=== PATIENT | male | born 1950 | race Caucasian/White ===

== ENCOUNTER 2019-03-29 16:18 | Observation (INO) ==
[2019-03-29] MEDS ORDERED: ACETAMINOPHEN 325 MG TABLET PO PRN (16:21)
[2019-03-29] MEDS ORDERED: MAGNESIUM SULF RIDER 4 GM in PREMIX 1 EACH IV PRN (16:21)
[2019-03-29] MEDS ORDERED: ONDANSETRON 4 MG/2 ML VIAL IV PRN (16:21)
[2019-03-29] MEDS ORDERED: MAGNESIUM SULF RIDER 2 GM in PREMIX 1 EACH IV PRN (16:21)
[2019-03-29] MEDS ORDERED: DOCUSATE SODIUM 100 MG CAPSULE PO PRN (16:21)
[2019-03-29] MEDS ORDERED: POTASSIUM CHLORIDE 20 MEQ TABLET PO PRN (16:21)
[2019-03-29] MEDS ORDERED: ZALEPLON 5 MG CAPSULE PO PRN (16:21)
[2019-03-29 18:18] LABS: Basophils # 0.1 10*3/uL (0.0-0.2); Basophils % 0.8 % (0.0-0.8); Eosinophils # 0.4 10*3/uL (0.0-0.87); Eosinophils % 5.5 % (0.00-10.9); Hematocrit 40.4 VOL% (42.0-52.0); Hemoglobin 13.4 GM/DL (14.0-18.0); Immature Granulocytes % 0.8 %; Immature Granulocytes Absolute 0.05 #; Lymphocytes # 0.8 10*3/uL (1.4-4.0); Lymphocytes % 13.1 % (21.2-54.2); Mean Corpuscular HGB Conc 33.2 GM/DL (32-36); Mean Platelet Volume 8.8 FL (9.6-12.0); Monocytes % 10.2 % (1.7-12.7); Neutrophils % 69.6 % (38.7-73.9); Platelet Count 106 T/CUMM (130-400); Red Blood Count 3.81 MC/CUMM (3.8-5.5); Red Cell Distribution Width 16.4 % (9.3-17.3); White Blood Count 6.4 T/CUMM (4-12)
[2019-03-29 18:33] LABS: Albumin 3.5 G/DL (3.4-5.0); Calcium 8.7 MG/DL (8.5-10.1); Osmolality,Calculated 288.3 MOS/KG (273-304)
[2019-03-29] MEDS: PANTOPRAZOLE 40 MG TABLET PO SCH (18:52)
[2019-03-29] MEDS: RIVAROXABAN 15 MG TABLET PO SCH (20:43)
[2019-03-30 06:27] LABS: Basophils # 0.1 10*3/uL (0.0-0.2); Basophils % 1.3 % (0.0-0.8); Eosinophils # 0.3 10*3/uL (0.0-0.87); Eosinophils % 6.8 % (0.00-10.9); Hematocrit 38.1 VOL% (42.0-52.0); Immature Granulocytes % 1.1 %; Immature Granulocytes Absolute 0.05 #; Lymphocytes % 22.7 % (21.2-54.2); Mean Corpuscular HGB Conc 34.1 GM/DL (32-36); Mean Corpuscular Volume 104.7 FL (87-102); Mean Platelet Volume 10.5 FL (9.6-12.0); Monocytes % 14.8 % (1.7-12.7); Neutrophils % 53.3 % (38.7-73.9); Red Blood Count 3.64 MC/CUMM (3.8-5.5); Red Cell Distribution Width 16.5 % (9.3-17.3); White Blood Count 4.6 T/CUMM (4-12)
[2019-03-30 06:32] LABS: Platelet Count 85 T/CUMM (130-400)
[2019-03-30 06:54] LABS: Osmolality,Calculated 293.7 MOS/KG (273-304); Risk Ratio 3.67
[2019-03-30 07:03] LABS: Hypochromasia 1+; Platelet Estimate Decreased
[2019-03-30] MEDS ORDERED: NITROGLYCERIN SL 0.4 MG TABLET SL PRN (07:45)
[2019-03-30] MEDS ORDERED: METHOCARBAMOL 500 MG TABLET PO PRN (07:45)
[2019-03-30] MEDS ORDERED: PROMETHAZINE 25 MG TABLET PO PRN (07:48)
[2019-03-30] MEDS: FOLIC ACID 1 MG TABLET PO SCH (08:59)
[2019-03-30] MEDS: PANTOPRAZOLE 40 MG TABLET PO SCH (08:59)
[2019-03-30] MEDS: RIVAROXABAN 15 MG TABLET PO SCH ×2 (08:59→17:00)
[2019-03-30] MEDS: CETIRIZINE 10 MG TABLET PO SCH (10:10)
[2019-03-30] MEDS: TRIAMCINOLONE 0.1% CREAM 15 GM TUBE TOP SCH (10:10)
[2019-03-30] MEDS: ASPIRIN EC 81 MG TABLET PO SCH (10:10)
[2019-03-30] MEDS: LOSARTAN 50 MG TABLET PO SCH (10:11)
[2019-03-30] MEDS: INSULIN REGULAR 100 UNIT/ML SUBCUT SCH ×3 (13:05→21:15)
[2019-03-30] MEDS ORDERED: ATORVASTATIN 40 MG TABLET PO SCH (21:00)
[2019-03-31 04:56] LABS: Basophils # 0.1 10*3/uL (0.0-0.2); Basophils % 1.2 % (0.0-0.8); Eosinophils # 0.4 10*3/uL (0.0-0.87); Eosinophils % 8.5 % (0.00-10.9); Hematocrit 37.1 VOL% (42.0-52.0); Hemoglobin 12.2 GM/DL (14.0-18.0); Immature Granulocytes % 1.9 %; Immature Granulocytes Absolute 0.08 #; Lymphocytes % 23.2 % (21.2-54.2); Mean Corpuscular HGB Conc 32.9 GM/DL (32-36); Mean Corpuscular Volume 107.5 FL (87-102); Mean Platelet Volume 9.5 FL (9.6-12.0); Neutrophils % 43.2 % (38.7-73.9); Red Blood Count 3.45 MC/CUMM (3.8-5.5); Red Cell Distribution Width 16.7 % (9.3-17.3); White Blood Count 4.1 T/CUMM (4-12)
[2019-03-31 04:57] LABS: Platelet Count 78 T/CUMM (130-400)
[2019-03-31 05:32] LABS: Calcium 8.1 MG/DL (8.5-10.1); Osmolality,Calculated 293.7 MOS/KG (273-304)
[2019-03-31 05:41] LABS: Eosinophils 6 % (0-10); Lymphocytes 22 % (20-55); Platelet Estimate Decreased; Segmented Neutrophils 61 % (50-85); Total Cells Counted 100
[2019-03-31] MEDS: INSULIN REGULAR 100 UNIT/ML SUBCUT SCH (08:00)
[2019-03-31 08:18] VITALS: BP 108/57
[2019-03-31] MEDS ORDERED: METHOTREXATE 2.5 MG TABLET PO SCH (09:00)
[2019-03-31] MEDS: CETIRIZINE 10 MG TABLET PO SCH (09:21)
[2019-03-31] MEDS: RIVAROXABAN 15 MG TABLET PO SCH (09:21)
[2019-03-31] MEDS: TRIAMCINOLONE 0.1% CREAM 15 GM TUBE TOP SCH (09:21)
[2019-03-31] MEDS: ASPIRIN EC 81 MG TABLET PO SCH (10:26)
[2019-03-31] MEDS: FOLIC ACID 1 MG TABLET PO SCH (10:26)
[2019-03-31] MEDS: LOSARTAN 50 MG TABLET PO SCH (10:26)
[2019-03-31] MEDS: PANTOPRAZOLE 40 MG TABLET PO SCH (10:27)
[2019-04-04 15:56] LABS: F5DNA Reviewed By SEE COMMENTS; Factor V Leiden (R506Q) Mutati Negative (Negative); PTNT Reviewed By SEE COMMENTS
== END 2019-03-31 10:45 | disposition home or self-care (01) ==
LOC: N.TELEN
PROVIDERS: ADMIT Internal Medicine Interventional Cardiology; ATTEND Internal Medicine Interventional Cardiology

== ENCOUNTER 2019-06-27 04:05 | Inpatient (IN) ==
[2019-06-27 05:23] LABS: Apearance,Urine CLEAR (Clear); Bacteria,Urine Occasional /HPF (Few); Bilirubin,Urine Negative (Negative); Blood, Urine Large mg/dL (Negative); Glucose,Urine (UA) Negative (Negative); Hyaline Casts,Urine 3 /LPF (0-3); Ketones,Urine Negative (Negative); Mucus,Urine Occasional /LPF (Occasional); Nitrite,Urine Negative (Negative); Protein,Urine Negative; RBC,Urine 69 /HPF (0-4); Urine Color Yellow (Yellow); Urine Specific Gravity 1.013 (1.001-1.035); Urine Urobilinogen < 2.0 EU/DL (0.2-1.0); WBC,Urine <1 /HPF (0-6)
[2019-06-27 05:25] LABS: Basophils % 0.2 % (0.0-0.8); Eosinophils # 0.1 10*3/uL (0.0-0.87); Eosinophils % 1.6 % (0.00-10.9); Hematocrit 32.1 VOL% (42.0-52.0); Hemoglobin 10.5 GM/DL (14.0-18.0); Immature Granulocytes % 2.2 %; Immature Granulocytes Absolute 0.19 #; Lymphocytes # 1.2 10*3/uL (1.4-4.0); Lymphocytes % 13.9 % (21.2-54.2); Mean Corpuscular HGB Conc 32.7 GM/DL (32-36); Mean Corpuscular Volume 104.6 FL (87-102); Mean Platelet Volume 10.8 FL (9.6-12.0); Monocytes % 12.4 % (1.7-12.7); Neutrophils % 69.7 % (38.7-73.9); Platelet Count 106 T/CUMM (130-400); Red Blood Count 3.07 MC/CUMM (3.8-5.5); Red Cell Distribution Width 17.2 % (9.3-17.3); White Blood Count 8.6 T/CUMM (4-12)
[2019-06-27 05:40] LABS: Albumin 2.3 G/DL (3.4-5.0); Bilirubin,Total 0.7 MG/DL (0.2-1.0); Calcium 8.7 MG/DL (8.5-10.1); Osmolality,Calculated 294.7 MOS/KG (273-304); Total Protein 5.4 G/DL (6.4-8.3)
[2019-06-27 05:45] LABS: Band Neutrophils 2 % (0-10); Eosinophils 1 % (0-10); Lymphocytes 9 % (20-55); Platelet Estimate Decreased; Segmented Neutrophils 78 % (50-85); Total Cells Counted 100
[2019-06-27 05:46] LABS: Hypochromasia 1+; Microcytosis 1+; Ovalocytes Slight
[2019-06-27 06:14] LABS: INR 4.2
[2019-06-27 06:15] LABS: PT Patient Result 44.9 SECS (9.6-12.2)
[2019-06-27] MEDS ORDERED: ONDANSETRON 4 MG/2 ML VIAL IV PRN (08:32)
[2019-06-27] MEDS ORDERED: ACETAMINOPHEN 325 MG TABLET PO PRN (08:32)
[2019-06-27] MEDS ORDERED: METHOCARBAMOL 500 MG TABLET PO PRN (09:08)
[2019-06-27] MEDS ORDERED: cefTRIAXone 2,000 MG in SYRINGE 1 EACH IV SCH (16:00)
[2019-06-27] MEDS ORDERED: ALBUTEROL/IPRATROPIUM 3 ML NEB RESP TX PRN (17:20)
[2019-06-27] MEDS: AMPICILLIN INJ 2,000 MG in SODIUM CHLORIDE 0.9% 100 ML IV SCH (17:59)
[2019-06-27] MEDS: VANCOMYCIN INJ 1,250 MG in SODIUM CHLORIDE 0.9% 250 ML IV SCH (18:37)
[2019-06-27] MEDS: ALBUTEROL/IPRATROPIUM 3 ML NEB RESP TX SCH (20:00)
[2019-06-27] MEDS: ATORVASTATIN 40 MG TABLET PO SCH (20:33)
[2019-06-27] MEDS: ACYCLOVIR INJ 750 MG in SODIUM CHLORIDE 0.9% 250 ML IV SCH (22:29)
[2019-06-28] MEDS: ALBUTEROL/IPRATROPIUM 3 ML NEB RESP TX SCH ×4 (00:36→19:20)
[2019-06-28] MEDS: AMPICILLIN INJ 2,000 MG in SODIUM CHLORIDE 0.9% 100 ML IV SCH ×7 (00:42→23:46)
[2019-06-28 02:26] LABS: Allen Test Positive; Pt O2 Delivery Device Venturi Mask
[2019-06-28 02:27] LABS: ABG Base Excess -3.1 MMOL/L (-2.5-2.5); ABG HCO3 21.7 MMOL/L (20-26); ABG Oxygen Saturation 89.2 % (95-100); ABG PCO2 27.1 MM HG (35-48); ABG PH 7.464 (7.35-7.45); ABG PO2 54.5 MM HG (80-95); ABG TCO2 17.4 MMOL/L (23-27)
[2019-06-28 05:41] LABS: INR 3.3
[2019-06-28] MEDS: ACYCLOVIR INJ 750 MG in SODIUM CHLORIDE 0.9% 250 ML IV SCH ×3 (05:57→22:28)
[2019-06-28 05:58] LABS: PT Patient Result 35.3 SECS (9.6-12.2)
[2019-06-28 05:59] LABS: Hematocrit 32.2 VOL% (42.0-52.0); Hemoglobin 10.7 GM/DL (14.0-18.0); Mean Corpuscular Volume 102.5 FL (87-102); Red Blood Count 3.14 MC/CUMM (3.8-5.5); White Blood Count 7.6 T/CUMM (4-12)
[2019-06-28 06:00] LABS: Basophils % 0.4 % (0.0-0.8); Eosinophils # 0.1 10*3/uL (0.0-0.87); Eosinophils % 0.7 % (0.00-10.9); Immature Granulocytes % 1.5 %; Immature Granulocytes Absolute 0.11 #; Lymphocytes # 0.8 10*3/uL (1.4-4.0); Mean Corpuscular HGB Conc 33.2 GM/DL (32-36); Mean Platelet Volume 11.6 FL (9.6-12.0); Monocytes % 9.4 % (1.7-12.7); Platelet Count 111 T/CUMM (130-400); Red Cell Distribution Width 17.5 % (9.3-17.3)
[2019-06-28 06:01] LABS: Calcium 8.4 MG/DL (8.5-10.1); Osmolality,Calculated 285.3 MOS/KG (273-304)
[2019-06-28 06:26] LABS: Platelet Estimate Decreased; Polychromasia Few
[2019-06-28] MEDS: cefTRIAXone 2,000 MG in SYRINGE 1 EACH IV SCH ×2 (06:51→17:34)
[2019-06-28] MEDS ORDERED: MAGNESIUM SULF RIDER 4 GM in PREMIX 1 EACH IV PRN (07:59)
[2019-06-28] MEDS ORDERED: MAGNESIUM SULF RIDER 2 GM in PREMIX 1 EACH IV PRN (07:59)
[2019-06-28] MEDS ORDERED: CYANOCOBALAMIN 500 MCG TABLET PO SCH (09:00)
[2019-06-28] MEDS ORDERED: ENOXAPARIN 80 MG/0.8 ML SYRINGE SUBCUT SCH (09:30)
[2019-06-28 11:17] LABS: Free T4 (Free Thyroxine) 0.88 NG/DL (0.76-1.46); Thyroid Stimulating Hormone 0.538 uIU/ml (0.358-3.74)
[2019-06-28] MEDS: ASPIRIN EC 81 MG TABLET PO SCH (12:41)
[2019-06-28] MEDS: LOSARTAN 50 MG TABLET PO SCH (12:41)
[2019-06-28] MEDS: CYANOCOBALAMIN 1000 MCG/1 ML VIAL SUBCUT SCH (12:41)
[2019-06-28] MEDS: FOLIC ACID 1 MG TABLET PO SCH (12:41)
[2019-06-28] MEDS: predniSONE 10 MG TABLET PO SCH (12:41)
[2019-06-28] MEDS ORDERED: FUROSEMIDE 40 MG/4 ML VIAL IV SCH (16:00)
[2019-06-28] MEDS: VANCOMYCIN INJ 1,250 MG in SODIUM CHLORIDE 0.9% 250 ML IV SCH (18:56)
[2019-06-28] MEDS: ATORVASTATIN 40 MG TABLET PO SCH (22:41)
[2019-06-29] MEDS: ALBUTEROL/IPRATROPIUM 3 ML NEB RESP TX SCH ×4 (00:52→19:13)
[2019-06-29] MEDS: AMPICILLIN INJ 2,000 MG in SODIUM CHLORIDE 0.9% 100 ML IV SCH ×6 (02:29→22:18)
[2019-06-29 04:33] LABS: INR 2.4
[2019-06-29 04:37] LABS: Basophils % 0.2 % (0.0-0.8); Eosinophils # 0.1 10*3/uL (0.0-0.87); Eosinophils % 0.9 % (0.00-10.9); Hematocrit 25.9 VOL% (42.0-52.0); Hemoglobin 8.5 GM/DL (14.0-18.0); Immature Granulocytes % 1.1 %; Immature Granulocytes Absolute 0.06 #; Lymphocytes # 0.8 10*3/uL (1.4-4.0); Lymphocytes % 14.7 % (21.2-54.2); Mean Corpuscular HGB Conc 32.8 GM/DL (32-36); Mean Corpuscular Volume 102.8 FL (87-102); Mean Platelet Volume 12.2 FL (9.6-12.0); Monocytes % 12.5 % (1.7-12.7); Neutrophils % 70.6 % (38.7-73.9); Red Blood Count 2.52 MC/CUMM (3.8-5.5); Red Cell Distribution Width 17.1 % (9.3-17.3); White Blood Count 5.4 T/CUMM (4-12)
[2019-06-29 04:41] LABS: Platelet Count 100 T/CUMM (130-400)
[2019-06-29 04:46] LABS: PT Patient Result 25.6 SECS (9.6-12.2)
[2019-06-29 04:50] LABS: Calcium 8.2 MG/DL (8.5-10.1); Osmolality,Calculated 289.4 MOS/KG (273-304)
[2019-06-29 05:02] LABS: Hypochromasia Slight; Ovalocytes Slight; Platelet Estimate Decreased
[2019-06-29 05:03] LABS: Microcytosis Slight
[2019-06-29] MEDS: cefTRIAXone 2,000 MG in SYRINGE 1 EACH IV SCH ×2 (05:40→16:40)
[2019-06-29] MEDS: ACYCLOVIR INJ 750 MG in SODIUM CHLORIDE 0.9% 250 ML IV SCH ×3 (06:42→21:05)
[2019-06-29] MEDS: VANCOMYCIN INJ 1,250 MG in SODIUM CHLORIDE 0.9% 250 ML IV SCH (08:00)
[2019-06-29 08:23] LABS: % Iron Saturation 26.7 % (18-50); Ferritin 2136.5 ng/ml (26-388)
[2019-06-29] MEDS ORDERED: FUROSEMIDE 40 MG/4 ML VIAL IV SCH (09:00)
[2019-06-29] MEDS: ASPIRIN EC 81 MG TABLET PO SCH (09:44)
[2019-06-29] MEDS: predniSONE 10 MG TABLET PO SCH (09:44)
[2019-06-29] MEDS: FOLIC ACID 1 MG TABLET PO SCH (09:44)
[2019-06-29] MEDS: LOSARTAN 50 MG TABLET PO SCH (09:44)
[2019-06-29] MEDS: POTASSIUM CHLORIDE 20 MEQ TABLET PO PRN (09:44)
[2019-06-29] MEDS: CYANOCOBALAMIN 1000 MCG/1 ML VIAL SUBCUT SCH (09:45)
[2019-06-29 10:16] LABS: Basophils % 0.3 % (0.0-0.8); Eosinophils # 0.3 10*3/uL (0.0-0.87); Eosinophils % 4.5 % (0.00-10.9); Hematocrit 28.9 VOL% (42.0-52.0); Hemoglobin 9.4 GM/DL (14.0-18.0); Immature Granulocytes Absolute 0.07 #; Lymphocytes # 1.1 10*3/uL (1.4-4.0); Lymphocytes % 15.6 % (21.2-54.2); Mean Corpuscular HGB Conc 32.5 GM/DL (32-36); Mean Corpuscular Volume 105.1 FL (87-102); Mean Platelet Volume 12.1 FL (9.6-12.0); Monocytes % 12.7 % (1.7-12.7); Neutrophils % 65.9 % (38.7-73.9); Platelet Count 120 T/CUMM (130-400); Red Blood Count 2.75 MC/CUMM (3.8-5.5); Red Cell Distribution Width 17.3 % (9.3-17.3); White Blood Count 7.1 T/CUMM (4-12)
[2019-06-29 10:34] LABS: Anisocytosis 1+; Macrocytosis 1+; Platelet Estimate Adequate; Poikilocytosis 1+
[2019-06-29 11:21] LABS: Sedimentation Rate-Westergren 72 MM/HR (0-20)
[2019-06-29] MEDS: SULFAMETHOX/TRIMETHOPRIM 800-160 MG TABLET PO SCH ×2 (11:38→21:15)
[2019-06-29 11:58] LABS: Folate 5.3 NG/ML (5.4-24.0); Vitamin B12 470 PG/ML (211-911)
[2019-06-29] MEDS: ATORVASTATIN 40 MG TABLET PO SCH (22:15)
[2019-06-30] MEDS: VANCOMYCIN INJ 1,250 MG in SODIUM CHLORIDE 0.9% 250 ML IV SCH ×2 (00:18→17:47)
[2019-06-30] MEDS: ALBUTEROL/IPRATROPIUM 3 ML NEB RESP TX SCH ×4 (00:52→19:21)
[2019-06-30] MEDS: AMPICILLIN INJ 2,000 MG in SODIUM CHLORIDE 0.9% 100 ML IV SCH ×6 (03:25→21:00)
[2019-06-30] MEDS: ACYCLOVIR INJ 750 MG in SODIUM CHLORIDE 0.9% 250 ML IV SCH ×3 (04:15→21:00)
[2019-06-30 04:29] LABS: Basophils % 0.2 % (0.0-0.8); Eosinophils # 0.2 10*3/uL (0.0-0.87); Eosinophils % 3.1 % (0.00-10.9); Hematocrit 25.4 VOL% (42.0-52.0); Hemoglobin 8.3 GM/DL (14.0-18.0); Immature Granulocytes % 1.1 %; Immature Granulocytes Absolute 0.06 #; Lymphocytes % 18.4 % (21.2-54.2); Mean Corpuscular HGB Conc 32.7 GM/DL (32-36); Mean Corpuscular Volume 103.3 FL (87-102); Mean Platelet Volume 11.7 FL (9.6-12.0); Monocytes % 15.2 % (1.7-12.7); Platelet Count 100 T/CUMM (130-400); Red Blood Count 2.46 MC/CUMM (3.8-5.5); White Blood Count 5.5 T/CUMM (4-12)
[2019-06-30 04:35] LABS: INR 2.4
[2019-06-30 04:37] LABS: PT Patient Result 25.5 SECS (9.6-12.2)
[2019-06-30 05:04] LABS: Calcium 8.1 MG/DL (8.5-10.1); Osmolality,Calculated 296.4 MOS/KG (273-304)
[2019-06-30] MEDS: cefTRIAXone 2,000 MG in SYRINGE 1 EACH IV SCH ×2 (05:39→16:08)
[2019-06-30] MEDS: POTASSIUM CHLORIDE 20 MEQ TABLET PO PRN (05:49)
[2019-06-30 07:38] LABS: Hemoglobin A1 (Alkaline) 97.5 % (96.5-98.5); Hemoglobin A2 (Alkaline) 2.5 % (1.5-3.5)
[2019-06-30] MEDS: CYANOCOBALAMIN 1000 MCG/1 ML VIAL SUBCUT SCH (08:59)
[2019-06-30] MEDS: FUROSEMIDE 40 MG TABLET PO SCH (08:59)
[2019-06-30] MEDS: FERROUS SULFATE 325 MG TABLET PO SCH ×2 (08:59→21:01)
[2019-06-30] MEDS: predniSONE 10 MG TABLET PO SCH (08:59)
[2019-06-30] MEDS: ASPIRIN EC 81 MG TABLET PO SCH (09:00)
[2019-06-30] MEDS: SULFAMETHOX/TRIMETHOPRIM 800-160 MG TABLET PO SCH ×3 (09:00→21:01)
[2019-06-30] MEDS: FOLIC ACID 1 MG TABLET PO SCH (09:00)
[2019-06-30] MEDS: POTASSIUM CHLORIDE 20 MEQ TABLET PO SCH ×2 (09:14→21:00)
[2019-06-30] MEDS: methylPREDNISolone SOD SUC 40 MG/1 ML VIAL IV SCH ×2 (10:57→21:00)
[2019-06-30 12:44] LABS: HIV Antigen/Antibody Result Nonreactive (Nonreactive)
[2019-07-01] MEDS: ALBUTEROL/IPRATROPIUM 3 ML NEB RESP TX SCH ×4 (00:54→20:10)
[2019-07-01] MEDS: AMPICILLIN INJ 2,000 MG in SODIUM CHLORIDE 0.9% 100 ML IV SCH ×6 (02:16→22:48)
[2019-07-01] MEDS: cefTRIAXone 2,000 MG in SYRINGE 1 EACH IV SCH ×2 (05:14→17:53)
[2019-07-01] MEDS: ACYCLOVIR INJ 750 MG in SODIUM CHLORIDE 0.9% 250 ML IV SCH ×3 (05:15→20:32)
[2019-07-01 05:49] LABS: Basophils % 0.2 % (0.0-0.8); Eosinophils % 0.4 % (0.00-10.9); Hematocrit 21.3 VOL% (42.0-52.0); Hemoglobin 6.5 GM/DL (14.0-18.0); Immature Granulocytes % 1.5 %; Immature Granulocytes Absolute 0.08 #; Lymphocytes % 17.9 % (21.2-54.2); Mean Corpuscular HGB Conc 30.5 GM/DL (32-36); Mean Corpuscular Volume 109.2 FL (87-102); Mean Platelet Volume 12.5 FL (9.6-12.0); Monocytes % 9.8 % (1.7-12.7); Neutrophils % 70.2 % (38.7-73.9); Platelet Count 102 T/CUMM (130-400); Red Blood Count 1.95 MC/CUMM (3.8-5.5); Red Cell Distribution Width 17.4 % (9.3-17.3); White Blood Count 5.3 T/CUMM (4-12)
[2019-07-01 06:05] LABS: Calcium 8.4 MG/DL (8.5-10.1)
[2019-07-01 06:09] LABS: INR 2.3
[2019-07-01] MEDS ORDERED: SODIUM CHLORIDE 0.9% 1,000 ML IV PRN (06:12)
[2019-07-01 06:14] LABS: PT Patient Result 24.8 SECS (9.6-12.2)
[2019-07-01 07:36] LABS: Anisocytosis 1+; Band Neutrophils 1 % (0-10); Hypochromasia 1+; Lymphocytes 8 % (20-55); Myelocytes 1 %; Ovalocytes Few; Poikilocytosis 1+; Segmented Neutrophils 81 % (50-85); Total Cells Counted 100
[2019-07-01 07:37] LABS: Burr Cells Slight; Platelet Estimate Adequate; Polychromasia Slight
[2019-07-01] MEDS: SULFAMETHOX/TRIMETHOPRIM 800-160 MG TABLET PO SCH ×3 (08:52→20:39)
[2019-07-01] MEDS: ASPIRIN EC 81 MG TABLET PO SCH (08:53)
[2019-07-01] MEDS: FUROSEMIDE 40 MG TABLET PO SCH (08:53)
[2019-07-01] MEDS: FERROUS SULFATE 325 MG TABLET PO SCH ×2 (08:53→20:39)
[2019-07-01] MEDS: FOLIC ACID 1 MG TABLET PO SCH ×2 (08:53→20:40)
[2019-07-01] MEDS: POTASSIUM CHLORIDE 20 MEQ TABLET PO SCH ×2 (08:57→20:39)
[2019-07-01] MEDS: methylPREDNISolone SOD SUC 40 MG/1 ML VIAL IV SCH ×2 (09:05→22:45)
[2019-07-01] MEDS: CYANOCOBALAMIN 1000 MCG/1 ML VIAL SUBCUT SCH (09:09)
[2019-07-01] MEDS: VANCOMYCIN INJ 1,250 MG in SODIUM CHLORIDE 0.9% 250 ML IV SCH (12:13)
[2019-07-02] MEDS: AMPICILLIN INJ 2,000 MG in SODIUM CHLORIDE 0.9% 100 ML IV SCH ×6 (01:40→21:35)
[2019-07-02] MEDS: ALBUTEROL/IPRATROPIUM 3 ML NEB RESP TX SCH ×4 (01:56→19:46)
[2019-07-02] MEDS ORDERED: CALCIUM CARBONATE CHEW 500 MG TABLET PO ONE (02:13)
[2019-07-02] MEDS: cefTRIAXone 2,000 MG in SYRINGE 1 EACH IV SCH ×2 (04:40→17:19)
[2019-07-02 04:43] LABS: Basophils % 0.2 % (0.0-0.8); Eosinophils # 0.1 10*3/uL (0.0-0.87); Eosinophils % 0.8 % (0.00-10.9); Hematocrit 26.7 VOL% (42.0-52.0); Hemoglobin 8.6 GM/DL (14.0-18.0); Immature Granulocytes % 2.9 %; Immature Granulocytes Absolute 0.17 #; Lymphocytes # 0.9 10*3/uL (1.4-4.0); Lymphocytes % 14.6 % (21.2-54.2); Mean Corpuscular HGB Conc 32.2 GM/DL (32-36); Mean Corpuscular Volume 103.1 FL (87-102); Mean Platelet Volume 13.5 FL (9.6-12.0); Monocytes % 10.6 % (1.7-12.7); NRBC # 0.03 10*3/uL; Neutrophils % 70.9 % (38.7-73.9); Platelet Count 75 T/CUMM (130-400); Red Blood Count 2.59 MC/CUMM (3.8-5.5); Red Cell Distribution Width 17.3 % (9.3-17.3)
[2019-07-02] MEDS: ACYCLOVIR INJ 750 MG in SODIUM CHLORIDE 0.9% 250 ML IV SCH ×3 (04:49→20:12)
[2019-07-02 05:01] LABS: INR 2.1
[2019-07-02 05:07] LABS: Calcium 8.9 MG/DL (8.5-10.1)
[2019-07-02 05:39] LABS: PT Patient Result 22.9 SECS (9.6-12.2)
[2019-07-02 06:17] LABS: Band Neutrophils 1 % (0-10); Lymphocytes 10 % (20-55); Macrocytosis Slight; Metamyelocytes 1 %; Nucleated Red Blood Cells 1 (0-5); Segmented Neutrophils 83 % (50-85); Total Cells Counted 100
[2019-07-02 06:18] LABS: Ovalocytes Few; Platelet Estimate Decreased
[2019-07-02] MEDS: SULFAMETHOX/TRIMETHOPRIM 800-160 MG TABLET PO SCH ×3 (08:44→20:12)
[2019-07-02] MEDS: ASPIRIN EC 81 MG TABLET PO SCH (08:44)
[2019-07-02] MEDS: FUROSEMIDE 40 MG TABLET PO SCH (08:44)
[2019-07-02] MEDS: FOLIC ACID 1 MG TABLET PO SCH ×2 (08:44→20:12)
[2019-07-02] MEDS: FERROUS SULFATE 325 MG TABLET PO SCH ×2 (08:45→20:12)
[2019-07-02] MEDS: POTASSIUM CHLORIDE 20 MEQ TABLET PO SCH ×2 (08:45→20:11)
[2019-07-02] MEDS: CYANOCOBALAMIN 1000 MCG/1 ML VIAL SUBCUT SCH (08:45)
[2019-07-02] MEDS: methylPREDNISolone SOD SUC 40 MG/1 ML VIAL IV SCH ×2 (09:39→21:45)
[2019-07-02] MEDS: VANCOMYCIN INJ 1,250 MG in SODIUM CHLORIDE 0.9% 250 ML IV SCH ×2 (18:09)
[2019-07-03] MEDS ORDERED: VANCOMYCIN INJ 1,250 MG in SODIUM CHLORIDE 0.9% 250 ML IV SCH
[2019-07-03] MEDS: ALBUTEROL/IPRATROPIUM 3 ML NEB RESP TX SCH ×4 (00:35→19:23)
[2019-07-03] MEDS: AMPICILLIN INJ 2,000 MG in SODIUM CHLORIDE 0.9% 100 ML IV SCH ×4 (01:01→14:27)
[2019-07-03] MEDS: cefTRIAXone 2,000 MG in SYRINGE 1 EACH IV SCH (04:00)
[2019-07-03] MEDS: ACYCLOVIR INJ 750 MG in SODIUM CHLORIDE 0.9% 250 ML IV SCH ×2 (04:02→15:11)
[2019-07-03 04:51] LABS: Basophils % 0.4 % (0.0-0.8); Eosinophils # 0.1 10*3/uL (0.0-0.87); Hematocrit 27.4 VOL% (42.0-52.0); Hemoglobin 8.7 GM/DL (14.0-18.0); Immature Granulocytes % 4.4 %; Immature Granulocytes Absolute 0.34 #; Lymphocytes # 1.1 10*3/uL (1.4-4.0); Mean Corpuscular HGB Conc 31.8 GM/DL (32-36); Mean Corpuscular Volume 104.6 FL (87-102); Mean Platelet Volume 10.1 FL (9.6-12.0); Monocytes % 8.4 % (1.7-12.7); NRBC # 0.06 10*3/uL; Neutrophils % 71.8 % (38.7-73.9); Platelet Count 160 T/CUMM (130-400); Red Blood Count 2.62 MC/CUMM (3.8-5.5); Red Cell Distribution Width 17.6 % (9.3-17.3); White Blood Count 7.7 T/CUMM (4-12)
[2019-07-03 05:00] LABS: PT Patient Result 22.1 SECS (9.6-12.2)
[2019-07-03 05:01] LABS: Hypochromasia 1+; Platelet Estimate Adequate
[2019-07-03 05:02] LABS: Burr Cells Slight; Ovalocytes Slight
[2019-07-03 05:11] LABS: Calcium 8.7 MG/DL (8.5-10.1); Osmolality,Calculated 287.4 MOS/KG (273-304)
[2019-07-03] MEDS ORDERED: LACTATED RINGERS 1,000 ML IV SCH (08:00)
[2019-07-03] MEDS ORDERED: PROPOFOL 200 MG/20 ML VIAL IV ONE (09:00)
[2019-07-03] MEDS ORDERED: LIDOCAINE 2% 5 ML VIAL ONE (09:00)
[2019-07-03] MEDS: methylPREDNISolone SOD SUC 40 MG/1 ML VIAL IV SCH ×2 (09:16→21:40)
[2019-07-03] MEDS: CYANOCOBALAMIN 1000 MCG/1 ML VIAL SUBCUT SCH (10:11)
[2019-07-03] MEDS: FLUCONAZOLE INJ 100 MG in IV BAG 1 EACH IV SCH (13:55)
[2019-07-03] MEDS: POTASSIUM CHLORIDE 20 MEQ TABLET PO SCH ×2 (14:00→21:40)
[2019-07-03] MEDS: FERROUS SULFATE 325 MG TABLET PO SCH ×2 (14:01→21:40)
[2019-07-03] MEDS: ASPIRIN EC 81 MG TABLET PO SCH (14:01)
[2019-07-03] MEDS: FUROSEMIDE 40 MG TABLET PO SCH (14:01)
[2019-07-03] MEDS: FOLIC ACID 1 MG TABLET PO SCH ×2 (14:01→21:40)
[2019-07-03] MEDS: SULFAMETHOX/TRIMETHOPRIM 800-160 MG TABLET PO SCH ×3 (14:01→21:40)
[2019-07-03] MEDS: PANTOPRAZOLE 40 MG TABLET PO SCH ×2 (14:02→21:40)
[2019-07-04] MEDS: ALBUTEROL/IPRATROPIUM 3 ML NEB RESP TX SCH ×4 (00:21→19:13)
[2019-07-04 04:20] LABS: Basophils % 0.1 % (0.0-0.8); Eosinophils # 0.1 10*3/uL (0.0-0.87); Eosinophils % 0.8 % (0.00-10.9); Hematocrit 26.8 VOL% (42.0-52.0); Hemoglobin 8.5 GM/DL (14.0-18.0); Immature Granulocytes % 7.2 %; Immature Granulocytes Absolute 0.53 #; Lymphocytes # 1.2 10*3/uL (1.4-4.0); Lymphocytes % 15.7 % (21.2-54.2); Mean Corpuscular HGB Conc 31.7 GM/DL (32-36); Mean Corpuscular Volume 106.3 FL (87-102); Mean Platelet Volume 10.8 FL (9.6-12.0); Monocytes % 9.1 % (1.7-12.7); NRBC # 0.07 10*3/uL; Neutrophils % 67.1 % (38.7-73.9); Platelet Count 145 T/CUMM (130-400); Red Blood Count 2.52 MC/CUMM (3.8-5.5); Red Cell Distribution Width 18.1 % (9.3-17.3); White Blood Count 7.4 T/CUMM (4-12)
[2019-07-04 04:42] LABS: Band Neutrophils 2 % (0-10); Hypochromasia 1+; Lymphocytes 15 % (20-55); Segmented Neutrophils 72 % (50-85); Total Cells Counted 100
[2019-07-04 04:47] LABS: Calcium 8.5 MG/DL (8.5-10.1); Osmolality,Calculated 289.5 MOS/KG (273-304)
[2019-07-04 04:51] LABS: PT Patient Result 21.6 SECS (9.6-12.2)
[2019-07-04] MEDS: POTASSIUM CHLORIDE 20 MEQ TABLET PO SCH ×2 (08:07→21:06)
[2019-07-04] MEDS: CYANOCOBALAMIN 1000 MCG/1 ML VIAL SUBCUT SCH (08:44)
[2019-07-04] MEDS: FUROSEMIDE 40 MG TABLET PO SCH (08:45)
[2019-07-04] MEDS: FERROUS SULFATE 325 MG TABLET PO SCH ×2 (08:45→21:06)
[2019-07-04] MEDS: ACYCLOVIR 800 MG TABLET PO SCH ×3 (08:45→21:11)
[2019-07-04] MEDS: FOLIC ACID 1 MG TABLET PO SCH ×2 (08:45→21:06)
[2019-07-04] MEDS: ASPIRIN EC 81 MG TABLET PO SCH (08:45)
[2019-07-04] MEDS: PANTOPRAZOLE 40 MG TABLET PO SCH ×2 (08:45→21:06)
[2019-07-04] MEDS: SULFAMETHOX/TRIMETHOPRIM 800-160 MG TABLET PO SCH ×3 (08:46→21:06)
[2019-07-04] MEDS: methylPREDNISolone SOD SUC 40 MG/1 ML VIAL IV SCH ×2 (10:05→21:07)
[2019-07-04] MEDS: FLUCONAZOLE INJ 100 MG in IV BAG 1 EACH IV SCH (12:10)
[2019-07-04 14:17] LABS: Apearance,Urine CLEAR (Clear); Bilirubin,Urine Negative (Negative); Blood, Urine Small mg/dL (Negative); Glucose,Urine (UA) Negative (Negative); Hyaline Casts,Urine 9 /LPF (0-3); Ketones,Urine Negative (Negative); Mucus,Urine Occasional /LPF (Occasional); Nitrite,Urine Negative (Negative); Protein,Urine Negative; RBC,Urine 8 /HPF (0-4); Urine Color Straw (Yellow); Urine Urobilinogen < 2.0 EU/DL (0.2-1.0); WBC,Urine 1 /HPF (0-6)
[2019-07-05] MEDS: ALBUTEROL/IPRATROPIUM 3 ML NEB RESP TX SCH ×2 (02:09→07:31)
[2019-07-05 04:40] LABS: Basophils % 0.2 % (0.0-0.8); Eosinophils # 0.1 10*3/uL (0.0-0.87); Eosinophils % 0.7 % (0.00-10.9); Hematocrit 26.3 VOL% (42.0-52.0); Hemoglobin 8.2 GM/DL (14.0-18.0); Immature Granulocytes % 12.2 %; Lymphocytes # 1.5 10*3/uL (1.4-4.0); Lymphocytes % 16.5 % (21.2-54.2); Mean Corpuscular HGB Conc 31.2 GM/DL (32-36); Mean Corpuscular Volume 106.9 FL (87-102); Mean Platelet Volume 10.7 FL (9.6-12.0); Monocytes % 10.4 % (1.7-12.7); NRBC # 0.08 10*3/uL; Platelet Count 168 T/CUMM (130-400); Red Blood Count 2.46 MC/CUMM (3.8-5.5); Red Cell Distribution Width 18.9 % (9.3-17.3)
[2019-07-05 04:49] LABS: INR 1.9
[2019-07-05 05:08] LABS: Band Neutrophils 1 % (0-10); Calcium 8.3 MG/DL (8.5-10.1); Hypochromasia 1+; Lymphocytes 12 % (20-55); Nucleated Red Blood Cells 2 (0-5); Osmolality,Calculated 295.5 MOS/KG (273-304); Ovalocytes Slight; Platelet Estimate Adequate; Segmented Neutrophils 80 % (50-85); Total Cells Counted 100
[2019-07-05 05:15] LABS: Calcium 8.5 MG/DL (8.5-10.1); Osmolality,Calculated 300.3 MOS/KG (273-304)
[2019-07-05] MEDS: ACYCLOVIR 800 MG TABLET PO SCH ×2 (07:57→08:06)
[2019-07-05] MEDS: ASPIRIN EC 81 MG TABLET PO SCH ×2 (07:57→08:08)
[2019-07-05] MEDS: SULFAMETHOX/TRIMETHOPRIM 800-160 MG TABLET PO SCH ×2 (07:57→08:05)
[2019-07-05] MEDS: CYANOCOBALAMIN 1000 MCG/1 ML VIAL SUBCUT SCH ×2 (07:58→08:06)
[2019-07-05] MEDS: FERROUS SULFATE 325 MG TABLET PO SCH ×2 (07:58→08:05)
[2019-07-05] MEDS: FOLIC ACID 1 MG TABLET PO SCH ×2 (07:58→08:05)
[2019-07-05] MEDS: methylPREDNISolone SOD SUC 40 MG/1 ML VIAL IV SCH ×2 (07:58→10:12)
[2019-07-05] MEDS: PANTOPRAZOLE 40 MG TABLET PO SCH ×2 (07:58→08:06)
[2019-07-05] MEDS: FUROSEMIDE 40 MG TABLET PO SCH ×2 (07:58→08:05)
[2019-07-05] MEDS: POTASSIUM CHLORIDE 20 MEQ TABLET PO SCH (08:05)
[2019-07-05 12:16] VITALS: BP 103/65
== END 2019-07-05 12:17 | disposition home or self-care (01) | DRG 177 ==
LOC: N.ED 04:05 → N.EDINP 04:05 → N.TELES 10:15 → SUATTDRO 06-28 11:17
PROVIDERS: ADMIT Internal Medicine; ATTEND Internal Medicine

== ENCOUNTER 2019-07-10 15:49 | Inpatient (IN) ==
[2019-07-10] MEDS ORDERED: SODIUM CHLORIDE 0.9% 500 ML IV STA ×2 (16:37→18:00)
[2019-07-10 17:12] LABS: Basophils # 0.1 10*3/uL (0.0-0.2); Basophils % 0.4 % (0.0-0.8); Eosinophils % 0.1 % (0.00-10.9); Hematocrit 37.8 VOL% (42.0-52.0); Immature Granulocytes % 2.4 %; Immature Granulocytes Absolute 0.34 #; Lymphocytes # 1.3 10*3/uL (1.4-4.0); Lymphocytes % 8.9 % (21.2-54.2); Mean Corpuscular HGB Conc 31.7 GM/DL (32-36); Mean Corpuscular Volume 109.2 FL (87-102); Mean Platelet Volume 10.7 FL (9.6-12.0); Monocytes % 7.2 % (1.7-12.7); NRBC # 0.02 10*3/uL; Platelet Count 114 T/CUMM (130-400); Red Blood Count 3.46 MC/CUMM (3.8-5.5); Red Cell Distribution Width 22.3 % (9.3-17.3); White Blood Count 14.5 T/CUMM (4-12)
[2019-07-10 17:50] LABS: Alanine Aminotransferase 56 U/L (16-61); Albumin 2.9 G/DL (3.4-5.0); Alkaline Phosphatase 101 U/L (45-117); Aspartate Amino Transferase 37 U/L (0-37); Bilirubin,Total < 0.39 MG/DL (0.2-1.0); Blood Urea Nitrogen 37 MG/DL (7-18); CKMB % 9.5 %; Estimated Glom Filtration Rate 33 ML/MIN; Glucose 151 MG/DL (74-106); Osmolality,Calculated 281.1 MOS/KG (273-304); Total Protein 7.5 G/DL (6.4-8.3); Troponin I 0.018 NG/ML (0.00-0.045)
[2019-07-10] MEDS ORDERED: SODIUM POLYSTYRENE SULFATE 15 GM/60 ML BOTTLE PO STA ×2 (17:59→23:33)
[2019-07-10] MEDS ORDERED: CALCIUM CHLORIDE 1,000 MG/10 ML SYRINGE IV STA (17:59)
[2019-07-10 18:27] LABS: INR 9.8; PT Patient Result 104.8 SECS (9.6-12.2)
[2019-07-10 19:41] LABS: Apearance,Urine CLEAR (Clear); Bilirubin,Urine Negative (Negative); Blood, Urine Large mg/dL (Negative); Glucose,Urine (UA) Negative (Negative); Hyaline Casts,Urine 32 /LPF (0-3); Ketones,Urine Negative (Negative); Mucus,Urine Occasional /LPF (Occasional); Nitrite,Urine Negative (Negative); Protein,Urine Negative; RBC,Urine 81 /HPF (0-4); Urine Color Yellow (Yellow); Urine Specific Gravity 1.012 (1.001-1.035); Urine Urobilinogen < 2.0 EU/DL (0.2-1.0); WBC,Urine <1 /HPF (0-6)
[2019-07-10] MEDS ORDERED: DEXTROSE 50% 25 GM/50 ML VIAL IV PRN (21:34)
[2019-07-10] MEDS ORDERED: ACETAMINOPHEN 325 MG TABLET PO PRN (21:34)
[2019-07-10] MEDS ORDERED: ALBUTEROL 2.5 MG/3 ML NEB RESP TX PRN (21:34)
[2019-07-10] MEDS ORDERED: GLUCAGON 1 MG VIAL IM PRN (21:34)
[2019-07-10] MEDS ORDERED: METHYLPREDNISOLONE PO SCH (21:34)
[2019-07-10] MEDS ORDERED: BENZONATATE 100 MG CAPSULE PO PRN (21:34)
[2019-07-10] MEDS: PANTOPRAZOLE 40 MG TABLET PO SCH (21:59)
[2019-07-10] MEDS: FERROUS SULFATE 325 MG TABLET PO SCH (21:59)
[2019-07-10] MEDS: SULFAMETHOX/TRIMETHOPRIM 800-160 MG TABLET PO SCH (21:59)
[2019-07-10] MEDS: ATORVASTATIN 40 MG TABLET PO SCH (21:59)
[2019-07-10] MEDS: METHOCARBAMOL 500 MG TABLET PO PRN (22:05)
[2019-07-10] MEDS: INSULIN LISPRO 100 UNIT/ML SUBCUT SCH (23:14)
[2019-07-10] MEDS: SODIUM CHLORIDE 0.9% 1,000 ML IV SCH (23:44)
[2019-07-11] MEDS: ONDANSETRON 4 MG/2 ML VIAL IV PRN ×2 (00:14→05:10)
[2019-07-11] MEDS: METHOCARBAMOL 500 MG TABLET PO PRN (05:11)
[2019-07-11 05:57] LABS: Basophils # 0.1 10*3/uL (0.0-0.2); Basophils % 0.5 % (0.0-0.8); Eosinophils # 0.2 10*3/uL (0.0-0.87); Eosinophils % 1.5 % (0.00-10.9); Hematocrit 33.2 VOL% (42.0-52.0); Hemoglobin 10.6 GM/DL (14.0-18.0); Immature Granulocytes % 1.7 %; Immature Granulocytes Absolute 0.18 #; Lymphocytes # 1.8 10*3/uL (1.4-4.0); Lymphocytes % 17.4 % (21.2-54.2); Mean Corpuscular HGB Conc 31.9 GM/DL (32-36); Mean Corpuscular Volume 108.9 FL (87-102); Mean Platelet Volume 11.1 FL (9.6-12.0); Monocytes % 12.8 % (1.7-12.7); NRBC # 0.02 10*3/uL; Neutrophils % 66.1 % (38.7-73.9); Red Blood Count 3.05 MC/CUMM (3.8-5.5); Red Cell Distribution Width 22.2 % (9.3-17.3); White Blood Count 10.3 T/CUMM (4-12)
[2019-07-11 06:13] LABS: Platelet Count 85 T/CUMM (130-400)
[2019-07-11 06:18] LABS: Calcium 8.7 MG/DL (8.5-10.1); Osmolality,Calculated 282.7 MOS/KG (273-304)
[2019-07-11 06:27] LABS: Hypochromasia 1+; Platelet Estimate Decreased
[2019-07-11 07:19] LABS: PT Patient Result 132.6 SECS (9.6-12.2)
[2019-07-11 07:22] LABS: INR 12.5
[2019-07-11] MEDS: INSULIN LISPRO 100 UNIT/ML SUBCUT SCH (07:45)
[2019-07-11] MEDS: PANTOPRAZOLE 40 MG TABLET PO SCH ×2 (08:58→21:16)
[2019-07-11] MEDS: FERROUS SULFATE 325 MG TABLET PO SCH ×2 (08:58→21:16)
[2019-07-11] MEDS: CYANOCOBALAMIN 500 MCG TABLET PO SCH (08:59)
[2019-07-11] MEDS ORDERED: FUROSEMIDE 20 MG TABLET PO SCH (09:00)
[2019-07-11] MEDS: SULFAMETHOX/TRIMETHOPRIM 800-160 MG TABLET PO SCH ×2 (09:00→11:22)
[2019-07-11] MEDS ORDERED: ERGOCALCIFEROL 50,000 UNIT CAPSULE PO SCH (09:00)
[2019-07-11] MEDS: FOLIC ACID 1 MG TABLET PO SCH (09:00)
[2019-07-11] MEDS ORDERED: SODIUM POLYSTYRENE SULFATE 15 GM/60 ML BOTTLE PO SCH (09:00)
[2019-07-11] MEDS ORDERED: SODIUM CHLORIDE 0.9% 1,000 ML IV PRN (09:41)
[2019-07-11] MEDS ORDERED: PHYTONADIONE 5 MG/5 ML ORAL.SYR PO SCH (10:00)
[2019-07-11] MEDS ORDERED: PHYTONADIONE PEDIATRIC 1 MG/0.5 ML AMP IM ONE (10:16)
[2019-07-11] MEDS ORDERED: PHYTONADIONE 10 MG/1 ML AMP SUBCUT ONE (10:17)
[2019-07-11] MEDS: SODIUM CHLORIDE 0.9% 1,000 ML IV SCH (13:57)
[2019-07-11] MEDS: ATORVASTATIN 40 MG TABLET PO SCH (21:16)
[2019-07-11 22:27] LABS: Calcium 8.1 MG/DL (8.5-10.1); Osmolality,Calculated 290.4 MOS/KG (273-304)
[2019-07-11] MEDS ORDERED: MAGNESIUM SULF RIDER 1 GM in PREMIX 1 EACH IV ONE (22:54)
[2019-07-12] MEDS: SODIUM CHLORIDE 0.9% 1,000 ML IV SCH ×2 (03:30→15:11)
[2019-07-12 05:57] LABS: Basophils # 0.1 10*3/uL (0.0-0.2); Basophils % 0.6 % (0.0-0.8); Eosinophils # 0.1 10*3/uL (0.0-0.87); Eosinophils % 1.6 % (0.00-10.9); Hematocrit 34.5 VOL% (42.0-52.0); Hemoglobin 10.9 GM/DL (14.0-18.0); Immature Granulocytes Absolute 0.18 #; Lymphocytes # 1.6 10*3/uL (1.4-4.0); Lymphocytes % 17.3 % (21.2-54.2); Mean Corpuscular HGB Conc 31.6 GM/DL (32-36); Mean Corpuscular Volume 109.5 FL (87-102); Mean Platelet Volume 11.4 FL (9.6-12.0); Monocytes % 12.7 % (1.7-12.7); Neutrophils % 65.8 % (38.7-73.9); Red Blood Count 3.15 MC/CUMM (3.8-5.5)
[2019-07-12 06:00] LABS: Platelet Count 77 T/CUMM (130-400)
[2019-07-12 06:03] LABS: PT Patient Result 53.3 SECS (9.6-12.2)
[2019-07-12 06:25] LABS: Calcium 8.3 MG/DL (8.5-10.1); Osmolality,Calculated 287.5 MOS/KG (273-304)
[2019-07-12 06:27] LABS: Platelet Estimate Decreased; Polychromasia Few
[2019-07-12] MEDS ORDERED: TAMSULOSIN 0.4 MG CAPSULE PO SCH (09:00)
[2019-07-12] MEDS ORDERED: FINASTERIDE 5 MG TABLET PO SCH (09:00)
[2019-07-12] MEDS: FERROUS SULFATE 325 MG TABLET PO SCH (09:58)
[2019-07-12] MEDS: FOLIC ACID 1 MG TABLET PO SCH (09:58)
[2019-07-12] MEDS: CYANOCOBALAMIN 500 MCG TABLET PO SCH (09:58)
[2019-07-12] MEDS: PANTOPRAZOLE 40 MG TABLET PO SCH (09:58)
[2019-07-12 15:14] VITALS: BP 105/66
== END 2019-07-12 15:29 | disposition home or self-care (01) | DRG 640 ==
LOC: N.ED 15:49 → N.EDINP 20:30 → SUATTDRO 20:30 → N.5E 20:54
PROVIDERS: ADMIT Internal Medicine; ATTEND Internal Medicine

== ENCOUNTER 2019-08-17 16:07 | Observation (INO) ==
[2019-08-17] MEDS ORDERED: INSULIN REGULAR 100 UNIT/ML IV ONE (16:52)
[2019-08-17] MEDS ORDERED: SODIUM CHLORIDE 0.9% 1,000 ML IV STA (16:52)
[2019-08-17 17:41] LABS: INR 1.8; PT Patient Result 19.2 SECS (9.6-12.2)
[2019-08-17] MEDS ORDERED: ACETAMINOPHEN 325 MG TABLET PO PRN (19:43)
[2019-08-17] MEDS ORDERED: DEXTROSE 50% 25 GM/50 ML VIAL IV PRN (19:43)
[2019-08-17] MEDS ORDERED: BENZONATATE 100 MG CAPSULE PO PRN (19:43)
[2019-08-17] MEDS ORDERED: ONDANSETRON 4 MG/2 ML VIAL IV PRN (19:43)
[2019-08-17] MEDS ORDERED: GLUCAGON 1 MG VIAL IM PRN (19:43)
[2019-08-17] MEDS: INSULIN REGULAR 100 UNIT/ML SUBCUT SCH ×2 (20:56→23:05)
[2019-08-17] MEDS ORDERED: ENOXAPARIN 40 MG/0.4 ML SYRINGE SUBCUT SCH (21:00)
[2019-08-17] MEDS ORDERED: ATORVASTATIN 40 MG TABLET PO SCH (21:00)
[2019-08-17] MEDS: SODIUM CHLORIDE 0.9% 1,000 ML IV SCH (22:41)
[2019-08-18] MEDS: INSULIN REGULAR 100 UNIT/ML SUBCUT SCH ×3 (00:51→08:55)
[2019-08-18 06:05] LABS: Basophils # 0.1 10*3/uL (0.0-0.2); Basophils % 1.2 % (0.0-0.8); Eosinophils # 0.2 10*3/uL (0.0-0.87); Eosinophils % 2.6 % (0.00-10.9); Hematocrit 40.3 VOL% (42.0-52.0); Hemoglobin 13.2 GM/DL (14.0-18.0); Immature Granulocytes Absolute 0.08 #; Lymphocytes # 1.7 10*3/uL (1.4-4.0); Lymphocytes % 20.4 % (21.2-54.2); Mean Corpuscular HGB Conc 32.8 GM/DL (32-36); Mean Corpuscular Volume 100.5 FL (87-102); Mean Platelet Volume 10.4 FL (9.6-12.0); Monocytes % 11.7 % (1.7-12.7); Neutrophils % 63.1 % (38.7-73.9); Platelet Count 100 T/CUMM (130-400); Red Blood Count 4.01 MC/CUMM (3.8-5.5); Red Cell Distribution Width 15.6 % (9.3-17.3); White Blood Count 8.3 T/CUMM (4-12)
[2019-08-18 06:18] LABS: INR 1.9; PT Patient Result 20.7 SECS (9.6-12.2)
[2019-08-18 06:31] LABS: Calcium 8.3 MG/DL (8.5-10.1)
[2019-08-18 07:49] VITALS: BP 125/74
[2019-08-18] MEDS: SODIUM CHLORIDE 0.9% 1,000 ML IV SCH (08:55)
[2019-08-18] MEDS ORDERED: POTASSIUM CHLORIDE 20 MEQ TABLET PO ONE (09:00)
[2019-08-18] MEDS ORDERED: FOLIC ACID 1 MG TABLET PO SCH (09:00)
[2019-08-18] MEDS ORDERED: methylPREDNISolone 4 MG TABLET PO SCH (09:00)
[2019-08-18] MEDS ORDERED: ASPIRIN EC 81 MG TABLET PO SCH (09:00)
[2019-08-18] MEDS ORDERED: MAGNESIUM SULF RIDER 2 GM in PREMIX 1 EACH IV ONE (09:00)
[2019-08-18] MEDS ORDERED: PANTOPRAZOLE 40 MG TABLET PO SCH (09:00)
[2019-08-18] MEDS ORDERED: CYANOCOBALAMIN 500 MCG TABLET PO SCH (09:00)
[2019-08-22] MEDS ORDERED: ERGOCALCIFEROL 50,000 UNIT CAPSULE PO SCH (09:00)
== END 2019-08-18 11:06 | disposition home or self-care (01) ==
LOC: N.ED 16:07 → SUATTDRO 17:40 → INTOOBSV 17:40 → N.EDINP 17:40 → N.2E 18:14
PROVIDERS: ADMIT Internal Medicine; ATTEND Hospitalist

== ENCOUNTER 2019-08-28 07:14 | Inpatient (IN) ==
[2019-08-17 15:19] LABS: Basophils # 0.1 10*3/uL (0.0-0.2); Basophils % 0.7 % (0.0-0.8); Eosinophils # 0.1 10*3/uL (0.0-0.87); Eosinophils % 1.4 % (0.00-10.9); Hematocrit 46.3 VOL% (42.0-52.0); Hemoglobin 15.3 GM/DL (14.0-18.0); Immature Granulocytes % 0.7 %; Immature Granulocytes Absolute 0.06 #; Lymphocytes # 1.4 10*3/uL (1.4-4.0); Lymphocytes % 16.7 % (21.2-54.2); Mean Corpuscular Volume 100.2 FL (87-102); Mean Platelet Volume 10.8 FL (9.6-12.0); Monocytes % 10.5 % (1.7-12.7); Platelet Count 111 T/CUMM (130-400); Red Blood Count 4.62 MC/CUMM (3.8-5.5); Red Cell Distribution Width 15.8 % (9.3-17.3); White Blood Count 8.5 T/CUMM (4-12)
[2019-08-17 15:41] LABS: Albumin 3.3 G/DL (3.4-5.0); Bilirubin,Total 0.7 MG/DL (0.2-1.0); Calcium 8.8 MG/DL (8.5-10.1); Osmolality,Calculated 302.1 MOS/KG (273-304)
[~2019-08-28 07:14] MED LIST: ceFAZolin 1,000 MG in SYRINGE 1 EACH IV ONE
[2019-08-28] MEDS ORDERED: HEPARIN 5,000 UNIT/1 ML VIAL ONE (07:42)
[2019-08-28] MEDS ORDERED: TISSUE ADHESIVE 1 EACH APPLICATOR TOP ONE (07:42)
[2019-08-28] MEDS ORDERED: ROPIVACAINE 0.5% 30 ML VIAL ONE (07:50)
[2019-08-28] MEDS ORDERED: DEXAMETHASONE 4 MG/1 ML VIAL ONE (07:50)
[2019-08-28] MEDS ORDERED: LIDOCAINE 1% 5 ML VIAL ONE (07:50)
[2019-08-28 08:00] LABS: INR 1.3; PT Patient Result 14.5 SECS (9.6-12.2); Partial Thromboplastin Time 28.2 SECS (20.8-36.0)
[2019-08-28] MEDS ORDERED: ceFAZolin 1,000 MG VIAL ONE (08:00)
[2019-08-28] MEDS ORDERED: fentaNYL 100 MCG/2 ML VIAL ONE ×2 (08:09→10:57)
[2019-08-28] MEDS ORDERED: LACTATED RINGERS 1,000 ML IV SCH (09:00)
[2019-08-28] MEDS ORDERED: HYDROmorphone 2 MG/1 ML VIAL IV PRN ×2 (10:20)
[2019-08-28] MEDS ORDERED: GLUCAGON 1 MG VIAL IM PRN (10:20)
[2019-08-28] MEDS ORDERED: ONDANSETRON 4 MG/2 ML VIAL IV PRN (10:20)
[2019-08-28] MEDS ORDERED: DEXTROSE 50% 25 GM/50 ML VIAL IV PRN (10:20)
[2019-08-28] MEDS ORDERED: PROMETHAZINE 25 MG/1 ML VIAL IM PRN (10:20)
[2019-08-28] MEDS ORDERED: oxyCODONE/ACETAMINOPHEN 5-325 MG TABLET PO PRN (10:20)
[2019-08-28] MEDS ORDERED: NALOXONE 0.4 MG/ML VIAL IV PRN (10:20)
[2019-08-28] MEDS ORDERED: BENZONATATE 100 MG CAPSULE PO PRN (10:22)
[2019-08-28] MEDS ORDERED: METHOCARBAMOL 500 MG TABLET PO PRN (10:22)
[2019-08-28] MEDS ORDERED: LABETALOL 100 MG/20 ML VIAL IV ONE (10:39)
[2019-08-28] MEDS ORDERED: LIDOCAINE 2% 5 ML VIAL ONE (10:56)
[2019-08-28] MEDS ORDERED: MIDAZOLAM 2 MG/2 ML VIAL ONE (10:56)
[2019-08-28] MEDS ORDERED: PHENYLEPHRINE DRIP 20 MG/250 ML PREMIX IV ONE (10:56)
[2019-08-28] MEDS ORDERED: SEVOFLURANE 1 UNIT/15 MINUTE INH ONE (10:56)
[2019-08-28] MEDS ORDERED: HEPARIN/NACL 0.9% 2 UNITS/ML 500 ML IV ONE (10:56)
[2019-08-28] MEDS ORDERED: HEPARIN 10,000 UNIT/10 ML VIAL ONE (10:56)
[2019-08-28] MEDS ORDERED: ESMOLOL 100 MG/10 ML VIAL IV ONE (10:57)
[2019-08-28] MEDS ORDERED: PROTAMINE SULFATE 50 MG/5 ML VIAL IV ONE (10:57)
[2019-08-28] MEDS ORDERED: ETOMIDATE 40 MG/20 ML VIAL IV ONE (10:57)
[2019-08-28] MEDS ORDERED: GLYCOPYRROLATE 0.4 MG/2 ML VIAL ONE (10:57)
[2019-08-28] MEDS ORDERED: ONDANSETRON 4 MG/2 ML VIAL ONE (10:57)
[2019-08-28] MEDS ORDERED: ROCURONIUM 100 MG/10 ML VIAL IV ONE (10:58)
[2019-08-28] MEDS ORDERED: NEOSTIGMINE 10 MG/10 ML VIAL ONE (10:58)
[2019-08-28] MEDS ORDERED: SUCCINYLCHOLINE 200 MG/10 ML VIAL ONE (10:58)
[2019-08-28] MEDS ORDERED: SODIUM CHLORIDE 0.9% 100 ML IV ONE (10:58)
[2019-08-28] MEDS ORDERED: SODIUM CHLORIDE 0.9% 1,000 ML IV ONE (10:58)
[2019-08-28] MEDS ORDERED: NITROGLYCERIN DRIP 50 MG/250 ML BOTTLE IV ONE (11:01)
[2019-08-28] MEDS: PHENYLEPHRINE DRIP 40 MG/250 ML PREMIX IV SCH (11:47)
[2019-08-28] MEDS: LACTATED RINGERS 1,000 ML IV SCH ×2 (11:48→21:34)
[2019-08-28] MEDS: NITROPRUSSIDE 100 MG in DEXTROSE 5% 250 ML IV SCH (11:56)
[2019-08-28] MEDS: INSULIN REGULAR 100 UNIT/ML SUBCUT SCH ×3 (12:20→21:27)
[2019-08-28] MEDS ORDERED: ALBUTEROL 2.5 MG/3 ML NEB RESP TX PRN (15:00)
[2019-08-28] MEDS ORDERED: WARFARIN 5 MG TABLET PO SCH (18:00)
[2019-08-28] MEDS ORDERED: ATORVASTATIN 40 MG TABLET PO SCH (21:00)
[2019-08-29] MEDS: oxyCODONE/ACETAMINOPHEN 5-325 MG TABLET PO PRN ×2 (04:34→10:28)
[2019-08-29 04:40] LABS: INR 1.4; PT Patient Result 14.9 SECS (9.6-12.2)
[2019-08-29] MEDS: LACTATED RINGERS 1,000 ML IV SCH (07:46)
[2019-08-29] MEDS: INSULIN REGULAR 100 UNIT/ML SUBCUT SCH ×3 (08:13→17:04)
[2019-08-29] MEDS ORDERED: INSULIN GLARGINE 100 UNIT/ML SUBCUT SCH (09:00)
[2019-08-29] MEDS ORDERED: FOLIC ACID 1 MG TABLET PO SCH (09:00)
[2019-08-29] MEDS ORDERED: TAMSULOSIN 0.4 MG CAPSULE PO SCH (09:00)
[2019-08-29] MEDS ORDERED: PANTOPRAZOLE 40 MG TABLET PO SCH (09:00)
[2019-08-29] MEDS ORDERED: ASPIRIN EC 81 MG TABLET PO SCH (09:00)
[2019-08-29] MEDS: PHENYLEPHRINE DRIP 40 MG/250 ML PREMIX IV SCH (09:44)
[2019-08-29] MEDS: NITROPRUSSIDE 100 MG in DEXTROSE 5% 250 ML IV SCH (09:45)
[2019-08-29] MEDS ORDERED: ERGOCALCIFEROL 50,000 UNIT CAPSULE PO SCH (09:59)
[2019-08-29] MEDS ORDERED: MENTHOL/ZINC OXIDE OINT 71 GM JAR TOP SCH (11:30)
[2019-08-29 16:15] VITALS: BP 128/72
[2019-08-29] MEDS ORDERED: WARFARIN 5 MG TABLET PO SCH (18:00)
[2019-08-30] MEDS ORDERED: methylPREDNISolone 4 MG TABLET PO SCH (09:00)
[2019-08-30] MEDS ORDERED: FUROSEMIDE 40 MG TABLET PO SCH (09:00)
== END 2019-08-29 17:30 | disposition home or self-care (01) | DRG 38 ==
LOC: N.SDSINP 07:14 → N.ICU 11:10 → N.4E 08-29 09:39
PROVIDERS: ADMIT Surgery; ATTEND Surgery

== ENCOUNTER 2022-07-18 21:24 | Inpatient (IN) ==
[2022-07-18 21:57] LABS: Basophils # 0.1 10*3/uL (0.0-0.2); Eosinophils # 0.4 10*3/uL (0.0-0.87); Eosinophils % 3.3 % (0.00-10.9); Hemoglobin 6.5 GM/DL (14.0-18.0); Immature Granulocytes % 0.7 %; Immature Granulocytes Absolute 0.08 #; Lymphocytes # 1.5 10*3/uL (1.4-4.0); Lymphocytes % 13.5 % (21.2-54.2); Mean Corpuscular HGB Conc 29.5 GM/DL (32-36); Mean Corpuscular Volume 83.7 FL (87-102); Mean Platelet Volume 9.3 FL (9.6-12.0); Monocytes # 0.9 10*3/uL (0.11-0.8); Monocytes % 7.8 % (1.7-12.7); Neutrophils % 73.7 % (38.7-73.9); Platelet Count 244 T/CUMM (130-400); Red Blood Count 2.63 MC/CUMM (3.8-5.5); Red Cell Distribution Width 17.3 % (9.3-17.3); White Blood Count 11.2 T/CUMM (4-12)
[2022-07-18 22:22] LABS: Albumin 3.3 G/DL (3.4-5.0); Bilirubin,Total 0.5 MG/DL (0.20-1.00); Calcium 8.5 MG/DL (8.5-10.1); Osmolality,Calculated 288.3 MOS/KG (273-304); Potassium 3.9 MMOL/L (3.5-5.1)
[2022-07-18 22:26] LABS: INR 1.7; PT Patient Result 18.3 SECS (10.1-12.1); Partial Thromboplastin Time 34.1 SECS (23.7-32.9)
[2022-07-18] MEDS ORDERED: methylPREDNISolone SOD SUC 125 MG/2 ML VIAL IV STA (23:03)
[2022-07-18] MEDS ORDERED: LEVOFLOXACIN INJ 500 MG/100 ML PREMIX IV ONE (23:03)
[2022-07-18] MEDS ORDERED: SODIUM CHLORIDE 0.9% 1,000 ML IV PRN (23:13)
[2022-07-18] MEDS ORDERED: ZALEPLON 5 MG CAPSULE PO PRN (23:47)
[2022-07-18] MEDS ORDERED: ACETAMINOPHEN 325 MG TABLET PO PRN (23:47)
[2022-07-18] MEDS ORDERED: guaiFENesin/DM ER 600-30 MG TABLET PO PRN (23:47)
[2022-07-18] MEDS ORDERED: DEXTROSE 10% 250 ML BAG IV PRN (23:47)
[2022-07-18] MEDS ORDERED: diphenhydrAMINE CAP 25 MG CAPSULE PO PRN (23:47)
[2022-07-18] MEDS ORDERED: hydrALAZINE 20 MG/1 ML VIAL IV PRN (23:47)
[2022-07-18] MEDS ORDERED: NICOTINE 21 MG/24 HR PATCH TRANSDERM PRN (23:47)
[2022-07-18] MEDS ORDERED: ONDANSETRON 4 MG/2 ML VIAL IV PRN (23:47)
[2022-07-18] MEDS ORDERED: GLUCAGON 1 MG VIAL IM PRN (23:47)
[2022-07-18] MEDS ORDERED: ENOXAPARIN 80 MG/0.8 ML SYRINGE SUBCUT STA (23:55)
[2022-07-19 00:31] LABS: Folate 5.24 NG/ML (5.38-24.0); Vitamin B12 317 PG/ML (211-911)
[2022-07-19] MEDS ORDERED: SODIUM CHLORIDE 0.9% 1,000 ML IV PRN (01:08)
[2022-07-19] MEDS: ALBUTEROL/IPRATROPIUM 3 ML NEB RESP TX SCH ×4 (01:10→19:31)
[2022-07-19] MEDS ORDERED: FUROSEMIDE 40 MG/4 ML VIAL ONE (02:35)
[2022-07-19] MEDS ORDERED: METOPROLOL TARTRATE 5 MG/5 ML VIAL IV ONE ×2 (02:37→02:40)
[2022-07-19] MEDS ORDERED: FUROSEMIDE 40 MG/4 ML VIAL IV ONE ×2 (02:37→07:30)
[2022-07-19] MEDS ORDERED: MORPHINE 2 MG/1 ML SYRINGE IV PRN (02:39)
[2022-07-19] MEDS ORDERED: NITROGLYCERIN SL 0.4 MG TABLET SL PRN (02:39)
[2022-07-19 02:44] LABS: Arterial Base Excess iSTAT -3 MMOL/L (-2.5-2.5); Arterial Bicarbonate iSTAT 24.5 MMOL/L (20-26); Arterial O2 Saturation iSTAT 100 % (95-100); Arterial PCO2 iSTAT 54 MM HG (35-48); Arterial PO2 iSTAT 460 MM HG (80-95); Arterial Total CO2 iSTAT 26 MMO/L (23-27); Arterial pH iSTAT 7.263 (7.35-7.45)
[2022-07-19] MEDS ORDERED: ONDANSETRON 4 MG/2 ML VIAL IV ONE (03:06)
[2022-07-19] MEDS ORDERED: MAGNESIUM SULF RIDER 4 GM/100 ML PREMIX IV PRN (03:45)
[2022-07-19] MEDS ORDERED: MAGNESIUM SULF RIDER 2 GM/50 ML PREMIX IV PRN (03:45)
[2022-07-19] MEDS ORDERED: MORPHINE 2 MG/1 ML SYRINGE IV ONE (03:47)
[2022-07-19 03:48] LABS: Bilirubin,Urine Negative (Negative); Blood, Urine Moderate mg/dL (Negative); Glucose,Urine (UA) Negative (Negative); Ketones,Urine Negative (Negative); Nitrite,Urine Negative (Negative); Protein,Urine 100 mg/dL (Negative); Urine Appearance Clear (Clear); Urine Color Yellow (Yellow); Urine Urobilinogen 0.2 eU/dL (<2.0); Urine pH 5.5 (4.5-8.0)
[2022-07-19 03:50] LABS: Mucus,Urine Occasional /LPF (Occasional); RBC,Urine 11 /HPF (0-4); Squamous Epithelial Cell,Urine Occasional /HPF (0-10)
[2022-07-19 04:11] LABS: Basophils # 0.1 10*3/uL (0.0-0.2); Basophils % 0.6 % (0.0-0.8); Eosinophils # 0.1 10*3/uL (0.0-0.87); Eosinophils % 0.6 % (0.00-10.9); Hematocrit 23.1 VOL% (42.0-52.0); Hemoglobin 6.6 GM/DL (14.0-18.0); Immature Granulocytes Absolute 0.12 #; Lymphocytes # 0.6 10*3/uL (1.4-4.0); Lymphocytes % 4.9 % (21.2-54.2); Mean Corpuscular HGB Conc 28.6 GM/DL (32-36); Mean Corpuscular Volume 85.2 FL (87-102); Mean Platelet Volume 9.3 FL (9.6-12.0); Monocytes # 0.1 10*3/uL (0.11-0.8); Monocytes % 0.7 % (1.7-12.7); Neutrophils % 92.2 % (38.7-73.9); Platelet Count 265 T/CUMM (130-400); Red Blood Count 2.71 MC/CUMM (3.8-5.5); Red Cell Distribution Width 17.3 % (9.3-17.3); White Blood Count 12.3 T/CUMM (4-12)
[2022-07-19] MEDS ORDERED: FAMOTIDINE 20 MG/2 ML VIAL IV SCH (04:30)
[2022-07-19 04:42] LABS: Eosinophils 1 % (0-10); Hypochromia Slight; Lymphocytes 4 % (20-55); Microcytosis 1+; Ovalocytes Slight; Total Cells Counted 100
[2022-07-19 04:49] LABS: Calcium 8.2 MG/DL (8.5-10.1); Osmolality,Calculated 293.4 MOS/KG (273-304); Potassium 4.4 MMOL/L (3.5-5.1)
[2022-07-19] MEDS ORDERED: methylPREDNISolone SOD SUC 125 MG/2 ML VIAL IV SCH ×2 (08:00)
[2022-07-19 08:28] LABS: Sedimentation Rate-Westergren 37 MM/HR (0-20)
[2022-07-19] MEDS: ASPIRIN EC 81 MG TABLET PO SCH (08:46)
[2022-07-19] MEDS: TAMSULOSIN 0.4 MG CAPSULE PO SCH (08:46)
[2022-07-19] MEDS: INSULIN GLARGINE 100 UNIT/ML SUBCUT SCH (08:46)
[2022-07-19] MEDS: PANTOPRAZOLE 40 MG VIAL IV SCH ×2 (08:48→20:45)
[2022-07-19] MEDS: RIVAROXABAN 20 MG TABLET PO SCH (08:49)
[2022-07-19] MEDS: methylPREDNISolone SOD SUC 40 MG/1 ML VIAL IV SCH ×3 (08:50→23:36)
[2022-07-19] MEDS ORDERED: PANTOPRAZOLE 40 MG TABLET PO SCH (09:00)
[2022-07-19] MEDS: INSULIN LISPRO 100 UNIT/ML SUBCUT SCH ×3 (09:44→20:49)
[2022-07-19 12:36] LABS: Calcium 8.4 MG/DL (8.5-10.1); Osmolality,Calculated 288.7 MOS/KG (273-304); Potassium 4.4 MMOL/L (3.5-5.1)
[2022-07-19] MEDS ORDERED: FUROSEMIDE 40 MG/4 ML VIAL IV PRN (19:04)
[2022-07-19] MEDS: ATORVASTATIN 40 MG TABLET PO SCH (20:49)
[2022-07-19] MEDS: MONTELUKAST 10 MG TABLET PO SCH (20:50)
[2022-07-19] MEDS ORDERED: LEVOFLOXACIN INJ 750 MG/150 ML PREMIX IV SCH (21:00)
[2022-07-19 22:55] LABS: Basophils % 0.1 % (0.0-0.8); Hemoglobin 7.4 GM/DL (14.0-18.0); Immature Granulocytes % 0.8 %; Immature Granulocytes Absolute 0.12 #; Lymphocytes # 0.6 10*3/uL (1.4-4.0); Lymphocytes % 3.7 % (21.2-54.2); Mean Corpuscular HGB Conc 30.8 GM/DL (32-36); Mean Corpuscular Volume 84.2 FL (87-102); Mean Platelet Volume 9.7 FL (9.6-12.0); Monocytes # 1.3 10*3/uL (0.11-0.8); Monocytes % 8.5 % (1.7-12.7); NRBC # 0.03 10*3/uL; Neutrophils % 86.9 % (38.7-73.9); Platelet Count 227 T/CUMM (130-400); Red Blood Count 2.85 MC/CUMM (3.8-5.5); Red Cell Distribution Width 16.8 % (9.3-17.3); White Blood Count 15.2 T/CUMM (4-12)
[2022-07-19 23:30] LABS: Lymphocytes 2 % (20-55); Total Cells Counted 100
[2022-07-19 23:31] LABS: Platelet Estimate Normal; Polychromasia Slight
[2022-07-19 23:32] LABS: Hypochromia Slight; Microcytosis 1+
[2022-07-20] MEDS: ALBUTEROL/IPRATROPIUM 3 ML NEB RESP TX SCH ×4 (00:06→19:45)
[2022-07-20 05:07] LABS: Basophils % 0.1 % (0.0-0.8); Hematocrit 24.2 VOL% (42.0-52.0); Hemoglobin 7.6 GM/DL (14.0-18.0); Immature Granulocytes % 1.2 %; Immature Granulocytes Absolute 0.18 #; Lymphocytes # 0.4 10*3/uL (1.4-4.0); Mean Corpuscular HGB Conc 31.4 GM/DL (32-36); Mean Corpuscular Volume 84.3 FL (87-102); Mean Platelet Volume 10.1 FL (9.6-12.0); Monocytes # 0.5 10*3/uL (0.11-0.8); Monocytes % 3.6 % (1.7-12.7); NRBC # 0.03 10*3/uL; Neutrophils % 92.1 % (38.7-73.9); Platelet Count 223 T/CUMM (130-400); Red Blood Count 2.87 MC/CUMM (3.8-5.5); Red Cell Distribution Width 16.6 % (9.3-17.3); White Blood Count 14.7 T/CUMM (4-12)
[2022-07-20 05:26] LABS: Calcium 8.5 MG/DL (8.5-10.1); Osmolality,Calculated 290.5 MOS/KG (273-304); Potassium 4.1 MMOL/L (3.5-5.1)
[2022-07-20 05:32] LABS: Lymphocytes 4 % (20-55); Nucleated Red Blood Cells 1 /100 WBC (0-5); Platelet Estimate Adequate; Total Cells Counted 100
[2022-07-20 05:33] LABS: Hypochromia Slight; Microcytosis Slight
[2022-07-20] MEDS: methylPREDNISolone SOD SUC 40 MG/1 ML VIAL IV SCH ×2 (08:00→16:52)
[2022-07-20] MEDS: INSULIN LISPRO 100 UNIT/ML SUBCUT SCH ×4 (08:00→20:56)
[2022-07-20 08:45] LABS: Hemoglobin A1 (Alkaline) 97.3 % (96.5-98.5); Hemoglobin A2 (Alkaline) 2.7 % (1.5-3.5)
[2022-07-20] MEDS: TAMSULOSIN 0.4 MG CAPSULE PO SCH (09:16)
[2022-07-20] MEDS: INSULIN GLARGINE 100 UNIT/ML SUBCUT SCH (09:16)
[2022-07-20] MEDS: RIVAROXABAN 20 MG TABLET PO SCH (09:16)
[2022-07-20] MEDS: ASPIRIN EC 81 MG TABLET PO SCH (09:16)
[2022-07-20] MEDS: PANTOPRAZOLE 40 MG VIAL IV SCH ×2 (09:17→20:56)
[2022-07-20] MEDS: ALBUTEROL 2 MG TABLET PO SCH ×2 (16:41→20:57)
[2022-07-20] MEDS: ATORVASTATIN 40 MG TABLET PO SCH (20:57)
[2022-07-20] MEDS: MONTELUKAST 10 MG TABLET PO SCH (20:57)
[2022-07-21] MEDS: methylPREDNISolone SOD SUC 40 MG/1 ML VIAL IV SCH ×2 (00:40→09:33)
[2022-07-21] MEDS: ALBUTEROL/IPRATROPIUM 3 ML NEB RESP TX SCH ×2 (00:40→07:11)
[2022-07-21 05:13] LABS: Basophils % 0.1 % (0.0-0.8); Hematocrit 25.9 VOL% (42.0-52.0); Hemoglobin 7.9 GM/DL (14.0-18.0); Immature Granulocytes % 1.2 %; Immature Granulocytes Absolute 0.16 #; Lymphocytes # 0.4 10*3/uL (1.4-4.0); Lymphocytes % 3.2 % (21.2-54.2); Mean Corpuscular HGB Conc 30.5 GM/DL (32-36); Mean Corpuscular Volume 84.4 FL (87-102); Mean Platelet Volume 9.7 FL (9.6-12.0); Monocytes # 0.5 10*3/uL (0.11-0.8); Monocytes % 3.6 % (1.7-12.7); NRBC # 0.06 10*3/uL; Neutrophils % 91.9 % (38.7-73.9); Platelet Count 235 T/CUMM (130-400); Red Blood Count 3.07 MC/CUMM (3.8-5.5); Red Cell Distribution Width 17.2 % (9.3-17.3); White Blood Count 13.5 T/CUMM (4-12)
[2022-07-21 05:28] LABS: Calcium 8.6 MG/DL (8.5-10.1); Osmolality,Calculated 298.3 MOS/KG (273-304); Potassium 4.5 MMOL/L (3.5-5.1)
[2022-07-21 05:38] LABS: Hypochromia Slight; Lymphocytes 2 % (20-55); Microcytosis Slight; Nucleated Red Blood Cells 2 /100 WBC (0-5); Platelet Estimate Adequate; Total Cells Counted 100
[2022-07-21] MEDS ORDERED: FINASTERIDE 5 MG TABLET PO SCH (09:00)
[2022-07-21] MEDS ORDERED: LEVOFLOXACIN 750 MG TABLET PO SCH (09:00)
[2022-07-21 09:16] VITALS: BP 132/68
[2022-07-21] MEDS: TAMSULOSIN 0.4 MG CAPSULE PO SCH (09:26)
[2022-07-21] MEDS: ASPIRIN EC 81 MG TABLET PO SCH (09:26)
[2022-07-21] MEDS: RIVAROXABAN 20 MG TABLET PO SCH (09:27)
[2022-07-21] MEDS: INSULIN GLARGINE 100 UNIT/ML SUBCUT SCH (09:27)
[2022-07-21] MEDS: ALBUTEROL 2 MG TABLET PO SCH (09:27)
[2022-07-21] MEDS: PANTOPRAZOLE 40 MG VIAL IV SCH (09:36)
[2022-07-21] MEDS: INSULIN LISPRO 100 UNIT/ML SUBCUT SCH (09:40)
[2022-07-21] MEDS ORDERED: PANTOPRAZOLE 40 MG TABLET PO SCH (21:00)
== END 2022-07-21 11:26 | disposition home or self-care (01) | DRG 193 ==
LOC: N.ED 21:24 → SUATTDRO 23:47 → N.TELEN 23:47 → N.ICU 07-19 03:49 → N.TELEN 07-20 14:26
PROVIDERS: ADMIT Internal Medicine Geriatric Medicine; ATTEND Internal Medicine

== ENCOUNTER 2022-08-07 00:55 | Inpatient (IN) ==
[2022-08-07] MEDS ORDERED: methylPREDNISolone SOD SUC 125 MG/2 ML VIAL IV STA (01:15)
[2022-08-07] MEDS ORDERED: ALBUTEROL/IPRATROPIUM 3 ML NEB RESP TX STA (01:15)
[2022-08-07] MEDS ORDERED: DILTIAZEM 25 MG/5 ML VIAL IV ONE (01:21)
[2022-08-07] MEDS ORDERED: DILTIAZEM 25 MG/5 ML VIAL IV STA (01:22)
[2022-08-07 01:25] LABS: Basophils # 0.1 10*3/uL (0.0-0.2); Basophils % 0.4 % (0.0-0.8); Eosinophils # 0.2 10*3/uL (0.0-0.87); Hematocrit 28.4 VOL% (42.0-52.0); Hemoglobin 8.1 GM/DL (14.0-18.0); Immature Granulocytes % 1.1 %; Immature Granulocytes Absolute 0.18 #; Lymphocytes # 1.2 10*3/uL (1.4-4.0); Lymphocytes % 7.5 % (21.2-54.2); Mean Corpuscular HGB Conc 28.5 GM/DL (32-36); Mean Corpuscular Volume 85.8 FL (87-102); Mean Platelet Volume 9.4 FL (9.6-12.0); Monocytes # 1.1 10*3/uL (0.11-0.8); Monocytes % 6.7 % (1.7-12.7); NRBC # 0.02 10*3/uL; Neutrophils % 83.3 % (38.7-73.9); Platelet Count 232 T/CUMM (130-400); Red Blood Count 3.31 MC/CUMM (3.8-5.5); Red Cell Distribution Width 20.6 % (9.3-17.3)
[2022-08-07 01:29] LABS: White Blood Count 16.2 T/CUMM (4-12)
[2022-08-07 01:35] LABS: INR 1.5; PT Patient Result 16.1 SECS (10.1-12.1)
[2022-08-07] MEDS ORDERED: DILTIAZEM 100 MG VIAL.ADD IV ONE (01:39)
[2022-08-07 01:43] LABS: Arterial Base Excess iSTAT -5 MMOL/L (-2.5-2.5); Arterial Bicarbonate iSTAT 20.9 MMOL/L (20-26); Arterial O2 Saturation iSTAT 79 % (95-100); Arterial PCO2 iSTAT 40 MM HG (35-48); Arterial PO2 iSTAT 46 MM HG (80-95); Arterial Total CO2 iSTAT 22 MMO/L (23-27); Arterial pH iSTAT 7.326 (7.35-7.45)
[2022-08-07 01:47] LABS: Albumin 3.2 G/DL (3.4-5.0); Bilirubin,Total 0.7 MG/DL (0.20-1.00); Calcium 8.9 MG/DL (8.5-10.1); Ferritin 142.5 ng/mL (26-388); Osmolality,Calculated 295.3 MOS/KG (273-304); Total Protein 6.4 G/DL (6.4-8.2)
[2022-08-07] MEDS ORDERED: FUROSEMIDE 20 MG/2 ML VIAL IV STA (01:47)
[2022-08-07] MEDS ORDERED: cefTRIAXone 1,000 MG in SODIUM CHLORIDE 0.9% 100 ML IV STA (01:53)
[2022-08-07] MEDS ORDERED: DILTIAZEM INJ 100 MG in SODIUM CHLORIDE 0.9% 100 ML IV SCH (02:00)
[2022-08-07] MEDS ORDERED: ONDANSETRON 4 MG/2 ML VIAL IV PRN (02:06)
[2022-08-07] MEDS ORDERED: GLUCAGON 1 MG VIAL IM PRN (02:06)
[2022-08-07] MEDS ORDERED: DEXTROSE 10% 250 ML BAG IV PRN (02:23)
[2022-08-07] MEDS: ACETAMINOPHEN 325 MG TABLET PO PRN (03:14)
[2022-08-07] MEDS ORDERED: INFLUENZA VIRUS VACCINE 0.5 ML SYRINGE IM ONE (04:02)
[2022-08-07] MEDS: AZITHROMYCIN INJ 500 MG in SODIUM CHLORIDE 0.9% 250 ML IV SCH (04:29)
[2022-08-07] MEDS: LEVALBUTEROL 1.25 MG/3 ML NEB RESP TX SCH ×3 (07:30→19:28)
[2022-08-07 07:58] LABS: Basophils % 0.1 % (0.0-0.8); Eosinophils % 0.1 % (0.00-10.9); Hematocrit 25.5 VOL% (42.0-52.0); Hemoglobin 7.4 GM/DL (14.0-18.0); Immature Granulocytes % 1.1 %; Immature Granulocytes Absolute 0.15 #; Lymphocytes # 0.5 10*3/uL (1.4-4.0); Lymphocytes % 3.4 % (21.2-54.2); Mean Corpuscular Volume 85.6 FL (87-102); Mean Platelet Volume 9.9 FL (9.6-12.0); Monocytes # 0.2 10*3/uL (0.11-0.8); Monocytes % 1.1 % (1.7-12.7); NRBC # 0.02 10*3/uL; Neutrophils % 94.2 % (38.7-73.9); Platelet Count 216 T/CUMM (130-400); Red Blood Count 2.98 MC/CUMM (3.8-5.5); Red Cell Distribution Width 20.8 % (9.3-17.3)
[2022-08-07 08:15] LABS: Hypochromia 1+; Lymphocytes 6 % (20-55); Total Cells Counted 100
[2022-08-07 08:16] LABS: Microcytosis 1+; Ovalocytes Slight; Polychromasia Slight
[2022-08-07 08:28] LABS: Albumin 2.8 G/DL (3.4-5.0); Bilirubin,Total 0.5 MG/DL (0.20-1.00); Calcium 8.6 MG/DL (8.5-10.1); Osmolality,Calculated 293.1 MOS/KG (273-304); Potassium 5.1 MMOL/L (3.5-5.1); Total Protein 5.8 G/DL (6.4-8.2)
[2022-08-07] MEDS: FUROSEMIDE 40 MG/4 ML VIAL IV SCH ×2 (10:34→16:18)
[2022-08-07] MEDS: INSULIN REGULAR 100 UNIT/ML SUBCUT SCH ×4 (10:34→22:19)
[2022-08-07] MEDS: TRELEGY ELLIPTA INH SCH (10:35)
[2022-08-07] MEDS: ASPIRIN EC 81 MG TABLET PO SCH (10:35)
[2022-08-07] MEDS: PANTOPRAZOLE 40 MG TABLET PO SCH (10:35)
[2022-08-07] MEDS: RIVAROXABAN 20 MG TABLET PO SCH (10:35)
[2022-08-07] MEDS: predniSONE 20 MG TABLET PO SCH (10:35)
[2022-08-07] MEDS: FINASTERIDE 5 MG TABLET PO SCH (10:35)
[2022-08-07] MEDS: TAMSULOSIN 0.4 MG CAPSULE PO SCH (10:35)
[2022-08-07] MEDS: MONTELUKAST 10 MG TABLET PO SCH (22:18)
[2022-08-07] MEDS: ATORVASTATIN 40 MG TABLET PO SCH (22:18)
[2022-08-07] MEDS: METOPROLOL SUCCINATE XL 25 MG TABLET PO SCH (22:18)
[2022-08-08] MEDS: LEVALBUTEROL 1.25 MG/3 ML NEB RESP TX SCH ×4 (01:47→19:35)
[2022-08-08] MEDS: cefTRIAXone 2,000 MG in SODIUM CHLORIDE 0.9% 100 ML IV SCH (02:10)
[2022-08-08] MEDS: AZITHROMYCIN INJ 500 MG in SODIUM CHLORIDE 0.9% 250 ML IV SCH (02:48)
[2022-08-08 05:21] LABS: Basophils % 0.1 % (0.0-0.8); Eosinophils % 0.1 % (0.00-10.9); Hematocrit 24.2 VOL% (42.0-52.0); Lymphocytes # 0.9 10*3/uL (1.4-4.0); Lymphocytes % 6.1 % (21.2-54.2); Mean Corpuscular HGB Conc 28.9 GM/DL (32-36); Mean Corpuscular Volume 86.1 FL (87-102); Mean Platelet Volume 9.8 FL (9.6-12.0); Monocytes # 1.3 10*3/uL (0.11-0.8); Monocytes % 8.1 % (1.7-12.7); Neutrophils % 84.9 % (38.7-73.9); Platelet Count 215 T/CUMM (130-400); Red Blood Count 2.81 MC/CUMM (3.8-5.5); White Blood Count 15.4 T/CUMM (4-12)
[2022-08-08 05:40] LABS: Calcium 8.6 MG/DL (8.5-10.1); Osmolality,Calculated 290.1 MOS/KG (273-304); Potassium 4.3 MMOL/L (3.5-5.1)
[2022-08-08 06:27] LABS: Lymphocytes 5 % (20-55); Platelet Estimate Normal
[2022-08-08] MEDS: ASPIRIN EC 81 MG TABLET PO SCH (09:53)
[2022-08-08] MEDS: METOPROLOL SUCCINATE XL 25 MG TABLET PO SCH (09:53)
[2022-08-08] MEDS: FINASTERIDE 5 MG TABLET PO SCH (09:53)
[2022-08-08] MEDS: predniSONE 20 MG TABLET PO SCH (09:53)
[2022-08-08] MEDS: TAMSULOSIN 0.4 MG CAPSULE PO SCH (09:53)
[2022-08-08] MEDS: INSULIN REGULAR 100 UNIT/ML SUBCUT SCH ×4 (09:54→21:42)
[2022-08-08] MEDS: RIVAROXABAN 20 MG TABLET PO SCH (09:54)
[2022-08-08] MEDS: PANTOPRAZOLE 40 MG TABLET PO SCH (09:54)
[2022-08-08] MEDS: FUROSEMIDE 40 MG/4 ML VIAL IV SCH ×3 (09:54→16:59)
[2022-08-08] MEDS: TRELEGY ELLIPTA INH SCH (09:56)
[2022-08-08] MEDS: ACETAMINOPHEN 325 MG TABLET PO PRN (13:35)
[2022-08-08] MEDS ORDERED: diphenhydrAMINE CAP 25 MG CAPSULE PO PRN (15:09)
[2022-08-08] MEDS ORDERED: SODIUM CHLORIDE 0.9% 1,000 ML IV PRN (15:09)
[2022-08-08] MEDS ORDERED: FUROSEMIDE 20 MG/2 ML VIAL IV ONE (15:12)
[2022-08-08] MEDS: MONTELUKAST 10 MG TABLET PO SCH (18:30)
[2022-08-08] MEDS: ATORVASTATIN 40 MG TABLET PO SCH (20:27)
[2022-08-08] MEDS ORDERED: FUROSEMIDE 40 MG/4 ML VIAL IV ONE (21:00)
[2022-08-08 22:05] LABS: Hemoglobin 9.3 GM/DL (14.0-18.0)
[2022-08-09] MEDS: LEVALBUTEROL 1.25 MG/3 ML NEB RESP TX SCH ×4 (00:56→19:29)
[2022-08-09] MEDS: cefTRIAXone 2,000 MG in SODIUM CHLORIDE 0.9% 100 ML IV SCH (02:07)
[2022-08-09] MEDS: AZITHROMYCIN INJ 500 MG in SODIUM CHLORIDE 0.9% 250 ML IV SCH (02:43)
[2022-08-09 05:30] LABS: Basophils % 0.1 % (0.0-0.8); Eosinophils # 0.1 10*3/uL (0.0-0.87); Eosinophils % 0.5 % (0.00-10.9); Hemoglobin 8.3 GM/DL (14.0-18.0); Lymphocytes # 1.4 10*3/uL (1.4-4.0); Lymphocytes % 9.6 % (21.2-54.2); Mean Corpuscular HGB Conc 29.6 GM/DL (32-36); Mean Corpuscular Volume 87.2 FL (87-102); Mean Platelet Volume 9.9 FL (9.6-12.0); Monocytes # 1.1 10*3/uL (0.11-0.8); Monocytes % 7.3 % (1.7-12.7); Neutrophils % 81.7 % (38.7-73.9); Platelet Count 218 T/CUMM (130-400); Red Blood Count 3.21 MC/CUMM (3.8-5.5); Red Cell Distribution Width 22.5 % (9.3-17.3); White Blood Count 14.6 T/CUMM (4-12)
[2022-08-09 05:41] LABS: Calcium 8.9 MG/DL (8.5-10.1); Osmolality,Calculated 295.3 MOS/KG (273-304); Potassium 3.5 MMOL/L (3.5-5.1)
[2022-08-09 06:36] LABS: Anisocytosis 2+; Band Neutrophils 1 % (0-10); Lymphocytes 9 % (20-55); Nucleated Red Blood Cells 1 /100 WBC (0-5); Ovalocytes Few; Platelet Estimate Normal; Tear Drop Cells Few
[2022-08-09] MEDS: INSULIN REGULAR 100 UNIT/ML SUBCUT SCH ×4 (09:47→20:57)
[2022-08-09] MEDS: ASPIRIN EC 81 MG TABLET PO SCH (09:48)
[2022-08-09] MEDS: RIVAROXABAN 20 MG TABLET PO SCH (09:48)
[2022-08-09] MEDS: FINASTERIDE 5 MG TABLET PO SCH (09:48)
[2022-08-09] MEDS: PANTOPRAZOLE 40 MG TABLET PO SCH (09:48)
[2022-08-09] MEDS: TAMSULOSIN 0.4 MG CAPSULE PO SCH (09:48)
[2022-08-09] MEDS: predniSONE 20 MG TABLET PO SCH (09:48)
[2022-08-09] MEDS: METOPROLOL SUCCINATE XL 25 MG TABLET PO SCH (09:49)
[2022-08-09] MEDS: FUROSEMIDE 40 MG/4 ML VIAL IV SCH ×2 (09:49→15:35)
[2022-08-09] MEDS: TRELEGY ELLIPTA INH SCH (11:31)
[2022-08-09] MEDS: MONTELUKAST 10 MG TABLET PO SCH (18:04)
[2022-08-09] MEDS: ATORVASTATIN 40 MG TABLET PO SCH (20:57)
[2022-08-10] MEDS: cefTRIAXone 2,000 MG in SODIUM CHLORIDE 0.9% 100 ML IV SCH (01:09)
[2022-08-10] MEDS: LEVALBUTEROL 1.25 MG/3 ML NEB RESP TX SCH ×4 (01:58→20:10)
[2022-08-10] MEDS: AZITHROMYCIN INJ 500 MG in SODIUM CHLORIDE 0.9% 250 ML IV SCH (03:26)
[2022-08-10 04:26] LABS: Basophils % 0.1 % (0.0-0.8); Eosinophils # 0.1 10*3/uL (0.0-0.87); Eosinophils % 0.5 % (0.00-10.9); Hematocrit 27.8 VOL% (42.0-52.0); Hemoglobin 8.5 GM/DL (14.0-18.0); Lymphocytes # 1.2 10*3/uL (1.4-4.0); Lymphocytes % 9.1 % (21.2-54.2); Mean Corpuscular HGB Conc 30.6 GM/DL (32-36); Mean Corpuscular Volume 86.3 FL (87-102); Mean Platelet Volume 9.9 FL (9.6-12.0); Monocytes # 1.1 10*3/uL (0.11-0.8); Monocytes % 8.1 % (1.7-12.7); Neutrophils % 81.6 % (38.7-73.9); Platelet Count 220 T/CUMM (130-400); Red Blood Count 3.22 MC/CUMM (3.8-5.5); Red Cell Distribution Width 23.7 % (9.3-17.3); White Blood Count 13.1 T/CUMM (4-12)
[2022-08-10 04:48] LABS: Calcium 8.6 MG/DL (8.5-10.1); Osmolality,Calculated 293.3 MOS/KG (273-304); Potassium 3.6 MMOL/L (3.5-5.1)
[2022-08-10 04:49] LABS: Eosinophils 1 % (0-10); Hypochromia Slight; Lymphocytes 11 % (20-55); Microcytosis Slight; Platelet Estimate Adequate
[2022-08-10 04:50] LABS: Ovalocytes Slight
[2022-08-10] MEDS ORDERED: POTASSIUM CHLORIDE 20 MEQ TABLET PO ONE (08:00)
[2022-08-10] MEDS ORDERED: MAGNESIUM SULF RIDER 2 GM/50 ML PREMIX IV ONE (08:00)
[2022-08-10] MEDS: INSULIN REGULAR 100 UNIT/ML SUBCUT SCH ×4 (08:00→22:59)
[2022-08-10] MEDS: FUROSEMIDE 40 MG/4 ML VIAL IV SCH (08:06)
[2022-08-10] MEDS: predniSONE 20 MG TABLET PO SCH (09:08)
[2022-08-10] MEDS: RIVAROXABAN 20 MG TABLET PO SCH (09:09)
[2022-08-10] MEDS: PANTOPRAZOLE 40 MG TABLET PO SCH (09:09)
[2022-08-10] MEDS: FUROSEMIDE 40 MG TABLET PO SCH (09:09)
[2022-08-10] MEDS: ASPIRIN EC 81 MG TABLET PO SCH (09:09)
[2022-08-10] MEDS: METOPROLOL SUCCINATE XL 25 MG TABLET PO SCH (09:09)
[2022-08-10] MEDS: TAMSULOSIN 0.4 MG CAPSULE PO SCH (09:09)
[2022-08-10] MEDS: TRELEGY ELLIPTA INH SCH (09:10)
[2022-08-10] MEDS: FINASTERIDE 5 MG TABLET PO SCH (09:10)
[2022-08-10] MEDS: FERRIC GLUCONATE COMPLEX 125 MG in SODIUM CHLORIDE 0.9% 100 ML IV SCH (11:59)
[2022-08-10] MEDS: MONTELUKAST 10 MG TABLET PO SCH (18:45)
[2022-08-10] MEDS: ATORVASTATIN 40 MG TABLET PO SCH (22:22)
[2022-08-10] MEDS: ASCORBIC ACID 500 MG TABLET PO SCH (22:22)
[2022-08-11] MEDS: LEVALBUTEROL 1.25 MG/3 ML NEB RESP TX SCH ×3 (00:13→13:37)
[2022-08-11] MEDS: AZITHROMYCIN INJ 500 MG in SODIUM CHLORIDE 0.9% 250 ML IV SCH (02:22)
[2022-08-11] MEDS: cefTRIAXone 2,000 MG in SODIUM CHLORIDE 0.9% 100 ML IV SCH (03:32)
[2022-08-11 06:11] LABS: Basophils % 0.1 % (0.0-0.8); Eosinophils # 0.1 10*3/uL (0.0-0.87); Hematocrit 30.6 VOL% (42.0-52.0); Hemoglobin 9.2 GM/DL (14.0-18.0); Immature Granulocytes % 0.9 %; Immature Granulocytes Absolute 0.12 #; Lymphocytes # 1.8 10*3/uL (1.4-4.0); Lymphocytes % 14.1 % (21.2-54.2); Mean Corpuscular HGB Conc 30.1 GM/DL (32-36); Mean Corpuscular Volume 88.4 FL (87-102); Mean Platelet Volume 9.2 FL (9.6-12.0); Monocytes # 1.1 10*3/uL (0.11-0.8); Monocytes % 8.5 % (1.7-12.7); NRBC # 0.02 10*3/uL; Neutrophils % 75.4 % (38.7-73.9); Platelet Count 188 T/CUMM (130-400); Red Blood Count 3.46 MC/CUMM (3.8-5.5); Red Cell Distribution Width 24.5 % (9.3-17.3); White Blood Count 12.7 T/CUMM (4-12)
[2022-08-11 06:24] LABS: Calcium 8.6 MG/DL (8.5-10.1); Osmolality,Calculated 296.7 MOS/KG (273-304); Potassium 3.6 MMOL/L (3.5-5.1)
[2022-08-11] MEDS: INSULIN REGULAR 100 UNIT/ML SUBCUT SCH ×2 (08:34→11:59)
[2022-08-11] MEDS: TRELEGY ELLIPTA INH SCH (08:35)
[2022-08-11] MEDS ORDERED: INFLUENZA VIRUS VACCINE 0.5 ML SYRINGE IM ONE (08:38)
[2022-08-11] MEDS ORDERED: RIVAROXABAN 10 MG TABLET PO SCH (09:00)
[2022-08-11] MEDS: predniSONE 20 MG TABLET PO SCH (09:19)
[2022-08-11] MEDS: ASCORBIC ACID 500 MG TABLET PO SCH (09:20)
[2022-08-11] MEDS: ACETAMINOPHEN 325 MG TABLET PO PRN (09:21)
[2022-08-11] MEDS: METOPROLOL SUCCINATE XL 25 MG TABLET PO SCH (09:21)
[2022-08-11] MEDS: PANTOPRAZOLE 40 MG TABLET PO SCH (09:21)
[2022-08-11] MEDS: ASPIRIN EC 81 MG TABLET PO SCH (09:21)
[2022-08-11] MEDS: FINASTERIDE 5 MG TABLET PO SCH (09:21)
[2022-08-11] MEDS: FERRIC GLUCONATE COMPLEX 125 MG in SODIUM CHLORIDE 0.9% 100 ML IV SCH (09:22)
[2022-08-11] MEDS: FUROSEMIDE 40 MG TABLET PO SCH (09:22)
[2022-08-11 12:30] VITALS: BP 125/58
== END 2022-08-11 13:00 | disposition home or self-care (01) | DRG 291 ==
LOC: EDUNIT# → EDBD → N.ED 00:55 → SUATTDRO 02:06 → N.TELES 02:06
PROVIDERS: ADMIT Internal Medicine; ATTEND Emergency Medicine

== ENCOUNTER 2022-12-06 00:12 | Inpatient (IN) ==
[2022-12-06] MEDS ORDERED: ALBUTEROL NEB SOLN 5 MG/ML 20 ML/BOTTLE CONT NEB STA (00:19)
[2022-12-06] MEDS ORDERED: DEXAMETHASONE 4 MG/1 ML VIAL IV STA (00:19)
[2022-12-06] MEDS ORDERED: LEVOFLOXACIN INJ 500 MG/100 ML PREMIX IV STA (00:28)
[2022-12-06] MEDS ORDERED: SODIUM CHLORIDE 0.9% 1,000 ML IV STA (00:31)
[2022-12-06] MEDS ORDERED: ALBUTEROL 2.5 MG/3 ML NEB RESP TX ONE (00:33)
[2022-12-06 00:48] LABS: Basophils # 0.1 10*3/uL (0.0-0.2); Basophils % 1.1 % (0.0-0.8); Eosinophils # 0.2 10*3/uL (0.0-0.87); Eosinophils % 1.7 % (0.00-10.9); Hematocrit 29.3 VOL% (42.0-52.0); Hemoglobin 9.1 GM/DL (14.0-18.0); Immature Granulocytes % 1.7 %; Immature Granulocytes Absolute 0.17 #; Lymphocytes % 10.3 % (21.2-54.2); Mean Corpuscular HGB Conc 31.1 GM/DL (32-36); Mean Corpuscular Volume 98.7 FL (87-102); Mean Platelet Volume 9.8 FL (9.6-12.0); Monocytes % 10.3 % (1.7-12.7); Neutrophils % 74.9 % (38.7-73.9); Platelet Count 187 T/CUMM (130-400); Red Blood Count 2.97 MC/CUMM (3.8-5.5); Red Cell Distribution Width 21.4 % (9.3-17.3)
[2022-12-06 01:03] LABS: ABG Base Excess -1.7 MMOL/L (-2.5-2.5); ABG HCO3 22.9 MMOL/L (20-26); ABG Oxygen Saturation 91.6 % (95-100); ABG PCO2 49.2 MM HG (35-48); ABG PH 7.311 (7.35-7.45); ABG PO2 68.5 MM HG (80-95); ABG TCO2 23.1 MMOL/L (23-27)
[2022-12-06 01:09] LABS: Calcium 8.7 MG/DL (8.5-10.1); Osmolality,Calculated 296.8 MOS/KG (273-304); Potassium 4.3 MMOL/L (3.5-5.1)
[2022-12-06] MEDS ORDERED: ALBUTEROL 2.5 MG/3 ML NEB RESP TX PRN (02:50)
[2022-12-06] MEDS ORDERED: ONDANSETRON 4 MG/2 ML VIAL IV PRN (02:52)
[2022-12-06] MEDS ORDERED: ACETAMINOPHEN 325 MG TABLET PO PRN (02:52)
[2022-12-06] MEDS ORDERED: MAGNESIUM SULF RIDER 2 GM/50 ML PREMIX IV ONE (03:00)
[2022-12-06] MEDS ORDERED: SODIUM CHLORIDE 0.9% 1,000 ML IV SCH (03:00)
[2022-12-06] MEDS: MEROPENEM 500 MG in SODIUM CHLORIDE 0.9% 100 ML IV SCH ×4 (03:55→20:36)
[2022-12-06] MEDS: FUROSEMIDE 40 MG/4 ML VIAL IV SCH ×2 (03:55→08:19)
[2022-12-06 04:19] LABS: ABG Base Excess -2.5 MMOL/L (-2.5-2.5); ABG HCO3 22.3 MMOL/L (20-26); ABG Oxygen Saturation 97.1 % (95-100); ABG PCO2 44.1 MM HG (35-48); ABG PH 7.332 (7.35-7.45); ABG PO2 97.1 MM HG (80-95); ABG TCO2 21.8 MMOL/L (23-27)
[2022-12-06 04:29] LABS: Albumin 2.4 G/DL (3.4-5.0); Bilirubin,Total 0.6 MG/DL (0.20-1.00); Calcium 8.8 MG/DL (8.5-10.1); Osmolality,Calculated 294.1 MOS/KG (273-304); Potassium 4.3 MMOL/L (3.5-5.1); Total Protein 6.8 G/DL (6.4-8.2)
[2022-12-06] MEDS: methylPREDNISolone SOD SUC 40 MG/1 ML VIAL IV SCH ×2 (05:12→15:47)
[2022-12-06 07:12] LABS: Basophils % 0.5 % (0.0-0.8); Eosinophils % 0.2 % (0.00-10.9); Hemoglobin 8.5 GM/DL (14.0-18.0); Immature Granulocytes % 1.6 %; Immature Granulocytes Absolute 0.14 #; Lymphocytes # 0.4 10*3/uL (1.4-4.0); Lymphocytes % 4.3 % (21.2-54.2); Mean Corpuscular HGB Conc 30.4 GM/DL (32-36); Monocytes # 0.2 10*3/uL (0.11-0.8); Monocytes % 2.4 % (1.7-12.7); Platelet Count 169 T/CUMM (130-400); Red Cell Distribution Width 21.4 % (9.3-17.3); White Blood Count 8.67 T/CUMM (4-12)
[2022-12-06] MEDS: ALBUTEROL/IPRATROPIUM 3 ML NEB RESP TX SCH ×4 (07:16→19:39)
[2022-12-06 07:31] LABS: Lymphocytes 2 % (20-55); Total Cells Counted 100
[2022-12-06 07:32] LABS: Anisocytosis 1+; Hypochromia Slight; Ovalocytes Slight
[2022-12-06] MEDS: RIVAROXABAN 10 MG TABLET PO SCH (08:18)
[2022-12-06] MEDS: INSULIN LISPRO 100 UNIT/ML SUBCUT SCH ×4 (08:18→20:36)
[2022-12-06] MEDS: INSULIN GLARGINE 100 UNIT/ML SUBCUT SCH (08:53)
[2022-12-06] MEDS: FAMOTIDINE 20 MG TABLET PO SCH ×2 (08:53→20:36)
[2022-12-06] MEDS ORDERED: MAGNESIUM SULF RIDER 2 GM/50 ML PREMIX IV PRN (08:55)
[2022-12-06] MEDS ORDERED: PANTOPRAZOLE 40 MG TABLET PO SCH (09:00)
[2022-12-06] MEDS ORDERED: GLUCAGON 1 MG VIAL IM PRN (12:19)
[2022-12-06] MEDS ORDERED: DEXTROSE 10% 250 ML BAG IV PRN (12:19)
[2022-12-06] MEDS: FUROSEMIDE 100 MG/10 ML VIAL IV SCH (15:12)
[2022-12-06] MEDS: NICOTINE 21 MG/24 HR PATCH TRANSDERM PRN (20:36)
[2022-12-07] MEDS: MEROPENEM 500 MG in SODIUM CHLORIDE 0.9% 100 ML IV SCH ×4 (03:01→20:31)
[2022-12-07] MEDS: methylPREDNISolone SOD SUC 40 MG/1 ML VIAL IV SCH ×2 (03:01→16:10)
[2022-12-07 04:11] LABS: ABG Base Excess 2.7 MMOL/L (-2.5-2.5); ABG HCO3 26.7 MMOL/L (20-26); ABG Oxygen Saturation 88.5 % (95-100); ABG PCO2 40.9 MM HG (35-48); ABG PH 7.431 (7.35-7.45); ABG PO2 57.4 MM HG (80-95); ABG TCO2 25.3 MMOL/L (23-27)
[2022-12-07] MEDS: ALBUTEROL/IPRATROPIUM 3 ML NEB RESP TX SCH ×7 (04:11→23:49)
[2022-12-07 05:09] LABS: Basophils % 0.2 % (0.0-0.8); Eosinophils % 0.1 % (0.00-10.9); Hematocrit 26.6 VOL% (42.0-52.0); Hemoglobin 8.3 GM/DL (14.0-18.0); Immature Granulocytes % 2.2 %; Immature Granulocytes Absolute 0.21 #; Lymphocytes # 1.1 10*3/uL (1.4-4.0); Mean Corpuscular HGB Conc 31.2 GM/DL (32-36); Mean Corpuscular Volume 96.7 FL (87-102); Mean Platelet Volume 9.5 FL (9.6-12.0); Monocytes % 10.1 % (1.7-12.7); NRBC # 0.04 10*3/uL; Neutrophils % 75.4 % (38.7-73.9); Platelet Count 239 T/CUMM (130-400); Red Blood Count 2.75 MC/CUMM (3.8-5.5); Red Cell Distribution Width 22.4 % (9.3-17.3)
[2022-12-07 05:12] LABS: Albumin 2.4 G/DL (3.4-5.0); Bilirubin,Total 0.6 MG/DL (0.20-1.00); Calcium 8.7 MG/DL (8.5-10.1); Osmolality,Calculated 292.1 MOS/KG (273-304); Potassium 3.9 MMOL/L (3.5-5.1); Total Protein 6.6 G/DL (6.4-8.2)
[2022-12-07] MEDS: FUROSEMIDE 100 MG/10 ML VIAL IV SCH ×2 (10:28→16:09)
[2022-12-07] MEDS: RIVAROXABAN 10 MG TABLET PO SCH (10:29)
[2022-12-07] MEDS: FAMOTIDINE 20 MG TABLET PO SCH ×2 (10:30→20:22)
[2022-12-07] MEDS: INSULIN GLARGINE 100 UNIT/ML SUBCUT SCH (10:30)
[2022-12-07] MEDS: INSULIN LISPRO 100 UNIT/ML SUBCUT SCH ×4 (10:58→20:23)
[2022-12-07] MEDS: MONTELUKAST 10 MG TABLET PO SCH (20:22)
[2022-12-08] MEDS: ALBUTEROL/IPRATROPIUM 3 ML NEB RESP TX SCH ×6 (03:36→23:07)
[2022-12-08] MEDS: methylPREDNISolone SOD SUC 40 MG/1 ML VIAL IV SCH ×2 (03:56→16:13)
[2022-12-08] MEDS: MEROPENEM 500 MG in SODIUM CHLORIDE 0.9% 100 ML IV SCH ×4 (03:56→20:32)
[2022-12-08 04:14] LABS: ABG Base Excess 4.5 MMOL/L (-2.5-2.5); ABG HCO3 28.4 MMOL/L (20-26); ABG Oxygen Saturation 93.9 % (95-100); ABG PCO2 44.5 MM HG (35-48); ABG PH 7.427 (7.35-7.45); ABG PO2 70.7 MM HG (80-95); ABG TCO2 27.3 MMOL/L (23-27)
[2022-12-08 04:56] LABS: Basophils % 0.2 % (0.0-0.8); Eosinophils % 0.2 % (0.00-10.9); Hematocrit 26.4 VOL% (42.0-52.0); Hemoglobin 8.3 GM/DL (14.0-18.0); Immature Granulocytes % 3.8 %; Immature Granulocytes Absolute 0.37 #; Lymphocytes # 1.3 10*3/uL (1.4-4.0); Lymphocytes % 13.7 % (21.2-54.2); Mean Corpuscular HGB Conc 31.4 GM/DL (32-36); Mean Corpuscular Volume 96.7 FL (87-102); Mean Platelet Volume 8.8 FL (9.6-12.0); Monocytes # 1.3 10*3/uL (0.11-0.8); Monocytes % 13.4 % (1.7-12.7); NRBC # 0.04 10*3/uL; Neutrophils % 68.7 % (38.7-73.9); Platelet Count 265 T/CUMM (130-400); Red Blood Count 2.73 MC/CUMM (3.8-5.5); Red Cell Distribution Width 22.9 % (9.3-17.3); White Blood Count 9.76 T/CUMM (4-12)
[2022-12-08 05:09] LABS: INR 1.5; PT Patient Result 15.7 SECS (10.1-12.1); Partial Thromboplastin Time 28.9 SECS (23.7-32.9)
[2022-12-08 05:28] LABS: Albumin 2.4 G/DL (3.4-5.0); Bilirubin,Total 0.5 MG/DL (0.20-1.00); Calcium 8.6 MG/DL (8.5-10.1); Osmolality,Calculated 299.8 MOS/KG (273-304); Potassium 3.5 MMOL/L (3.5-5.1); Total Protein 6.6 G/DL (6.4-8.2)
[2022-12-08] MEDS: INSULIN LISPRO 100 UNIT/ML SUBCUT SCH ×4 (07:30→20:25)
[2022-12-08] MEDS ORDERED: diphenhydrAMINE 50 MG/1 ML VIAL IM ONE (07:30)
[2022-12-08] MEDS ORDERED: MEPERIDINE 50 MG/1 ML VIAL IM ONE (07:30)
[2022-12-08] MEDS ORDERED: BENZONATATE 100 MG CAPSULE PO ONE (07:30)
[2022-12-08] MEDS ORDERED: LIDOCAINE 2% 20 ML VIAL RESP TX ONE (08:00)
[2022-12-08] MEDS ORDERED: LIDOCAINE 2% VISCOUS 100 ML BOTTLE SWISH/SPIT ONE (08:00)
[2022-12-08] MEDS ORDERED: LIDOCAINE 1% 20 ML VIAL MISC INJ ONE (08:00)
[2022-12-08] MEDS ORDERED: MIDAZOLAM 2 MG/2 ML VIAL IV ONE (08:48)
[2022-12-08] MEDS ORDERED: MIDAZOLAM 2 MG/2 ML VIAL ONE (08:50)
[2022-12-08] MEDS: RIVAROXABAN 10 MG TABLET PO SCH (11:57)
[2022-12-08] MEDS: FAMOTIDINE 20 MG TABLET PO SCH ×2 (11:57→20:25)
[2022-12-08] MEDS: FUROSEMIDE 100 MG/10 ML VIAL IV SCH ×2 (11:58→16:12)
[2022-12-08] MEDS: INSULIN GLARGINE 100 UNIT/ML SUBCUT SCH (11:59)
[2022-12-08] MEDS ORDERED: NITROGLYCERIN SL 0.4 MG TABLET SL PRN (15:14)
[2022-12-08] MEDS: MONTELUKAST 10 MG TABLET PO SCH (20:25)
[2022-12-08] MEDS: ATORVASTATIN 40 MG TABLET PO SCH (20:25)
[2022-12-08] MEDS: PHENAZOPYRIDINE 95 MG TABLET PO PRN (23:06)
[2022-12-08 23:24] LABS: Mucus,Urine Occasional /LPF (Occasional); RBC,Urine 24 /HPF (0-4)
[2022-12-08 23:25] LABS: Glucose,Urine (UA) Negative (Negative); Ketones,Urine Negative (Negative); Nitrite,Urine Negative (Negative); Protein,Urine Negative (Negative); Urine Appearance Clear (Clear); Urine Color Yellow (Yellow); Urine Specific Gravity 1.015 (1.001-1.035)
[2022-12-08 23:26] LABS: Bilirubin,Urine Negative (Negative); Blood, Urine Large mg/dL (Negative); Urine Urobilinogen 0.2 eU/dL (<2.0)
[2022-12-09] MEDS: ALBUTEROL/IPRATROPIUM 3 ML NEB RESP TX SCH ×6 (03:31→22:16)
[2022-12-09] MEDS: MEROPENEM 500 MG in SODIUM CHLORIDE 0.9% 100 ML IV SCH ×4 (03:45→20:43)
[2022-12-09] MEDS: methylPREDNISolone SOD SUC 40 MG/1 ML VIAL IV SCH (03:46)
[2022-12-09 04:06] LABS: Basophils % 0.2 % (0.0-0.8); Hematocrit 29.2 VOL% (42.0-52.0); Hemoglobin 9.2 GM/DL (14.0-18.0); Immature Granulocytes % 4.5 %; Immature Granulocytes Absolute 0.48 #; Lymphocytes % 9.3 % (21.2-54.2); Mean Corpuscular HGB Conc 31.5 GM/DL (32-36); Mean Corpuscular Volume 97.7 FL (87-102); Mean Platelet Volume 9.2 FL (9.6-12.0); Monocytes # 1.3 10*3/uL (0.11-0.8); Monocytes % 12.1 % (1.7-12.7); NRBC # 0.07 10*3/uL; Neutrophils % 73.9 % (38.7-73.9); Platelet Count 348 T/CUMM (130-400); Red Blood Count 2.99 MC/CUMM (3.8-5.5); White Blood Count 10.74 T/CUMM (4-12)
[2022-12-09 04:14] LABS: INR 1.4; PT Patient Result 15.3 SECS (10.1-12.1)
[2022-12-09 04:25] LABS: Arterial Base Excess iSTAT 6 MMOL/L (-2.5-2.5); Arterial Bicarbonate iSTAT 31.2 MMOL/L (20-26); Arterial O2 Saturation iSTAT 94 % (95-100); Arterial PCO2 iSTAT 47 MM HG (35-48); Arterial PO2 iSTAT 71 MM HG (80-95); Arterial Total CO2 iSTAT 33 MMO/L (23-27); Arterial pH iSTAT 7.427 (7.35-7.45)
[2022-12-09 04:28] LABS: Albumin 2.7 G/DL (3.4-5.0); Bilirubin,Total 0.7 MG/DL (0.20-1.00); Calcium 8.8 MG/DL (8.5-10.1); Osmolality,Calculated 299.4 MOS/KG (273-304); Potassium 3.8 MMOL/L (3.5-5.1); Total Protein 6.9 G/DL (6.4-8.2)
[2022-12-09] MEDS ORDERED: DEXTROSE 5% NACL 0.45% 1,000 ML IV SCH (08:00)
[2022-12-09] MEDS: FAMOTIDINE 20 MG TABLET PO SCH ×2 (08:25→20:42)
[2022-12-09] MEDS: ASPIRIN EC 81 MG TABLET PO SCH (08:25)
[2022-12-09] MEDS: INSULIN GLARGINE 100 UNIT/ML SUBCUT SCH (08:25)
[2022-12-09] MEDS: METOPROLOL SUCCINATE XL 25 MG TABLET PO SCH (08:25)
[2022-12-09] MEDS: RIVAROXABAN 10 MG TABLET PO SCH (08:25)
[2022-12-09] MEDS: INSULIN LISPRO 100 UNIT/ML SUBCUT SCH ×4 (08:25→20:37)
[2022-12-09] MEDS ORDERED: ALUMINUM/MAGNES/SIMETH MAX STR 30 ML UDCUP PO PRN (08:48)
[2022-12-09] MEDS ORDERED: TAMSULOSIN 0.4 MG CAPSULE PO SCH (09:00)
[2022-12-09] MEDS: PHENAZOPYRIDINE 95 MG TABLET PO PRN (10:05)
[2022-12-09] MEDS: FINASTERIDE 5 MG TABLET PO SCH (10:05)
[2022-12-09] MEDS: ASCORBIC ACID 500 MG TABLET PO SCH ×2 (10:05→20:43)
[2022-12-09] MEDS: guaiFENesin/DM ER 600-30 MG TABLET PO SCH ×2 (10:05→20:42)
[2022-12-09] MEDS: TAMSULOSIN 0.4 MG CAPSULE PO SCH (20:37)
[2022-12-09] MEDS: ATORVASTATIN 40 MG TABLET PO SCH (20:42)
[2022-12-09] MEDS: MONTELUKAST 10 MG TABLET PO SCH (20:43)
[2022-12-09] MEDS: NICOTINE 21 MG/24 HR PATCH TRANSDERM PRN (20:43)
[2022-12-10] MEDS: MEROPENEM 500 MG in SODIUM CHLORIDE 0.9% 100 ML IV SCH ×4 (03:13→21:51)
[2022-12-10] MEDS: ALBUTEROL/IPRATROPIUM 3 ML NEB RESP TX SCH ×5 (03:22→19:48)
[2022-12-10 04:11] LABS: Basophils % 0.2 % (0.0-0.8); Eosinophils # 0.1 10*3/uL (0.0-0.87); Eosinophils % 1.1 % (0.00-10.9); Hematocrit 29.2 VOL% (42.0-52.0); Hemoglobin 9.1 GM/DL (14.0-18.0); Immature Granulocytes % 5.9 %; Immature Granulocytes Absolute 0.59 #; Lymphocytes # 1.9 10*3/uL (1.4-4.0); Lymphocytes % 18.8 % (21.2-54.2); Mean Corpuscular HGB Conc 31.2 GM/DL (32-36); Mean Corpuscular Volume 98.6 FL (87-102); Mean Platelet Volume 8.6 FL (9.6-12.0); Monocytes # 1.6 10*3/uL (0.11-0.8); Monocytes % 15.5 % (1.7-12.7); Neutrophils % 58.5 % (38.7-73.9); Platelet Count 282 T/CUMM (130-400); Red Blood Count 2.96 MC/CUMM (3.8-5.5); Red Cell Distribution Width 22.2 % (9.3-17.3); White Blood Count 10.07 T/CUMM (4-12)
[2022-12-10 04:35] LABS: Eosinophils 2 % (0-10); Hypochromia Slight; Lymphocytes 15 % (20-55); Nucleated Red Blood Cells 1 /100 WBC (0-5); Platelet Estimate Adequate; Total Cells Counted 100
[2022-12-10 04:36] LABS: Calcium 8.3 MG/DL (8.5-10.1); Potassium 3.5 MMOL/L (3.5-5.1)
[2022-12-10] MEDS: INSULIN LISPRO 100 UNIT/ML SUBCUT SCH ×4 (07:50→21:52)
[2022-12-10] MEDS: FINASTERIDE 5 MG TABLET PO SCH (08:45)
[2022-12-10] MEDS: METOPROLOL SUCCINATE XL 25 MG TABLET PO SCH (08:45)
[2022-12-10] MEDS: FAMOTIDINE 20 MG TABLET PO SCH ×2 (08:45→21:52)
[2022-12-10] MEDS: ASPIRIN EC 81 MG TABLET PO SCH (08:45)
[2022-12-10] MEDS: methylPREDNISolone SOD SUC 40 MG/1 ML VIAL IV SCH (08:45)
[2022-12-10] MEDS: RIVAROXABAN 10 MG TABLET PO SCH (08:45)
[2022-12-10] MEDS: ASCORBIC ACID 500 MG TABLET PO SCH ×2 (08:45→21:52)
[2022-12-10] MEDS: guaiFENesin/DM ER 600-30 MG TABLET PO SCH ×2 (08:45→21:51)
[2022-12-10] MEDS: INSULIN GLARGINE 100 UNIT/ML SUBCUT SCH (08:50)
[2022-12-10 19:11] LABS: M. Tuberculosis PCR Result Negative (Negative)
[2022-12-10] MEDS: ATORVASTATIN 40 MG TABLET PO SCH (21:51)
[2022-12-10] MEDS: MONTELUKAST 10 MG TABLET PO SCH (21:52)
[2022-12-10] MEDS: TAMSULOSIN 0.4 MG CAPSULE PO SCH (21:52)
[2022-12-11] MEDS: ALBUTEROL/IPRATROPIUM 3 ML NEB RESP TX SCH ×7 (00:01→23:11)
[2022-12-11] MEDS: MEROPENEM 500 MG in SODIUM CHLORIDE 0.9% 100 ML IV SCH ×4 (03:11→21:05)
[2022-12-11 04:17] LABS: Basophils % 0.3 % (0.0-0.8); Eosinophils # 0.1 10*3/uL (0.0-0.87); Eosinophils % 0.7 % (0.00-10.9); Hematocrit 30.7 VOL% (42.0-52.0); Hemoglobin 9.3 GM/DL (14.0-18.0); Immature Granulocytes % 7.5 %; Immature Granulocytes Absolute 0.93 #; Lymphocytes # 1.6 10*3/uL (1.4-4.0); Lymphocytes % 12.5 % (21.2-54.2); Mean Corpuscular HGB Conc 30.3 GM/DL (32-36); Mean Platelet Volume 9.1 FL (9.6-12.0); NRBC # 0.09 10*3/uL; Platelet Count 322 T/CUMM (130-400); Red Blood Count 3.04 MC/CUMM (3.8-5.5); Red Cell Distribution Width 21.7 % (9.3-17.3); White Blood Count 12.47 T/CUMM (4-12)
[2022-12-11 04:30] LABS: Band Neutrophils 1 % (0-10); Hypochromia Slight; Lymphocytes 14 % (20-55); Platelet Estimate Adequate; Total Cells Counted 100
[2022-12-11 04:37] LABS: Calcium 8.3 MG/DL (8.5-10.1); Osmolality,Calculated 293.5 MOS/KG (273-304); Potassium 4.1 MMOL/L (3.5-5.1)
[2022-12-11] MEDS: FINASTERIDE 5 MG TABLET PO SCH (08:28)
[2022-12-11] MEDS: ASPIRIN EC 81 MG TABLET PO SCH (08:28)
[2022-12-11] MEDS: guaiFENesin/DM ER 600-30 MG TABLET PO SCH ×2 (08:28→21:02)
[2022-12-11] MEDS: METOPROLOL SUCCINATE XL 25 MG TABLET PO SCH (08:28)
[2022-12-11] MEDS: ASCORBIC ACID 500 MG TABLET PO SCH ×2 (08:28→21:02)
[2022-12-11] MEDS: RIVAROXABAN 10 MG TABLET PO SCH (08:28)
[2022-12-11] MEDS: FAMOTIDINE 20 MG TABLET PO SCH ×2 (08:28→21:02)
[2022-12-11] MEDS: methylPREDNISolone SOD SUC 40 MG/1 ML VIAL IV SCH (08:40)
[2022-12-11] MEDS: INSULIN GLARGINE 100 UNIT/ML SUBCUT SCH (09:03)
[2022-12-11] MEDS: INSULIN LISPRO 100 UNIT/ML SUBCUT SCH ×4 (10:13→21:03)
[2022-12-11] MEDS: ATORVASTATIN 40 MG TABLET PO SCH (21:02)
[2022-12-11] MEDS: TAMSULOSIN 0.4 MG CAPSULE PO SCH (21:02)
[2022-12-11] MEDS: MONTELUKAST 10 MG TABLET PO SCH (21:03)
[2022-12-12] MEDS: MEROPENEM 500 MG in SODIUM CHLORIDE 0.9% 100 ML IV SCH ×2 (02:33→11:49)
[2022-12-12] MEDS: ALBUTEROL/IPRATROPIUM 3 ML NEB RESP TX SCH ×3 (03:58→11:05)
[2022-12-12 04:19] LABS: Basophils % 0.2 % (0.0-0.8); Eosinophils # 0.1 10*3/uL (0.0-0.87); Eosinophils % 0.7 % (0.00-10.9); Hematocrit 27.3 VOL% (42.0-52.0); Hemoglobin 8.2 GM/DL (14.0-18.0); Immature Granulocytes % 7.9 %; Immature Granulocytes Absolute 0.86 #; Lymphocytes # 1.5 10*3/uL (1.4-4.0); Lymphocytes % 13.4 % (21.2-54.2); Mean Corpuscular Volume 99.6 FL (87-102); Mean Platelet Volume 9.3 FL (9.6-12.0); Monocytes # 1.7 10*3/uL (0.11-0.8); Monocytes % 15.6 % (1.7-12.7); NRBC # 0.08 10*3/uL; Neutrophils % 62.2 % (38.7-73.9); Platelet Count 305 T/CUMM (130-400); Red Blood Count 2.74 MC/CUMM (3.8-5.5); Red Cell Distribution Width 21.3 % (9.3-17.3); White Blood Count 10.93 T/CUMM (4-12)
[2022-12-12 04:37] LABS: % Iron Saturation 23.1 % (18-50); Calcium 8.6 MG/DL (8.5-10.1); Osmolality,Calculated 302.8 MOS/KG (273-304); Potassium 3.9 MMOL/L (3.5-5.1)
[2022-12-12 04:43] LABS: Band Neutrophils 1 % (0-10); Hypochromia Slight; Lymphocytes 19 % (20-55); Metamyelocytes 2 %; Myelocytes 3 %; Nucleated Red Blood Cells 2 /100 WBC (0-5); Total Cells Counted 100
[2022-12-12 04:44] LABS: Anisocytosis 1+; Ovalocytes Few; Polychromasia Slight
[2022-12-12 04:52] LABS: Folate 6.31 NG/ML (5.38-24.0)
[2022-12-12] MEDS: INSULIN GLARGINE 100 UNIT/ML SUBCUT SCH (09:00)
[2022-12-12] MEDS ORDERED: FUROSEMIDE 40 MG TABLET PO SCH (09:00)
[2022-12-12] MEDS: RIVAROXABAN 10 MG TABLET PO SCH (10:31)
[2022-12-12] MEDS: ASCORBIC ACID 500 MG TABLET PO SCH (10:31)
[2022-12-12] MEDS: guaiFENesin/DM ER 600-30 MG TABLET PO SCH (10:31)
[2022-12-12] MEDS: FINASTERIDE 5 MG TABLET PO SCH (10:31)
[2022-12-12] MEDS: ASPIRIN EC 81 MG TABLET PO SCH (10:31)
[2022-12-12] MEDS: METOPROLOL SUCCINATE XL 25 MG TABLET PO SCH (10:31)
[2022-12-12] MEDS: methylPREDNISolone SOD SUC 40 MG/1 ML VIAL IV SCH (10:32)
[2022-12-12] MEDS: FAMOTIDINE 20 MG TABLET PO SCH (10:34)
[2022-12-12] MEDS: INSULIN LISPRO 100 UNIT/ML SUBCUT SCH ×2 (10:38→12:36)
[2022-12-12 11:47] VITALS: BP 120/77
== END 2022-12-12 12:15 | disposition home health service (06) | DRG 177 ==
LOC: EDUNIT# → EDBD → N.ED 00:12 → SUATTDRO 02:50 → N.EDINP 02:50 → N.ICU 03:27 → N.TELES 12-10 17:13
PROVIDERS: ADMIT Internal Medicine; ATTEND Internal Medicine